=== PATIENT | female | born 1965 | race Caucasian/White ===

== ENCOUNTER 2019-11-25 12:47 | Inpatient (IN) | payer BC, OTHER ==
[~2019-11-25] VITALS: Ht 165.3 cm; Wt 133.5 kg
[~2019-11-25 12:47] MED LIST: CHOLESTEROL MED PO; DIAZIDE PO; HUMULIN SC; LEVOXYL PO; METF-380 PO
[2019-11-25] MEDS ORDERED: INSU100I29 SQ (13:10)
[2019-11-25] MEDS ORDERED: INSU100I14 SQ (13:10)
[2019-11-25] MEDS ORDERED: TRIA1CAP4 PO (13:10)
[2019-11-25] MEDS ORDERED: LEVO175T5 PO (13:10)
[2019-11-25] MEDS ORDERED: ROSU20TA32 PO (13:10)
[2019-11-25] MEDS ORDERED: NS IV 1000 ML 1,000 ML IV SCH ×2 (13:43)
--- NOTE | 2019-11-25 13:54 | ED Respiratory ---
General Chief Complaint: Respiratory Problems Stated Complaint: SOB Nursing Triage Note: Tested positive for covid 19 on 11/13. States symptoms at that time was a fever. Yesterday developed a cough and shortness of breath. O2 sats at home were mid 80's on room air. On arrival to ED was 80% on room air. 3L oxygen placed and sats returned to 91%. Temp was 104 two days ago, states it was 100 prior to arrival. Has been taking aleve, zyrtec, and tylenol for symptoms. Source: patient Exam Limitations: no limitations History of Present Illness Date Seen by Provider: Nov 25, 2019 Time Seen by Provider: 13:24 Initial Comments Patient presents ER by private conveyance with chief complaint of shortness of air starting today. She has some general malaise for the past 2 weeks and 10 days ago was diagnosed with COVID-19 outpatient. She follows with Neo Woodall at [facility]. She has not have a history of smoking, tobaccoism, COPD or asthma. She has no history of heart disease. She's not having any pain anywhere. She just has shortness of air today. Nursing staff that she was 80% oxygen sats on room air when she arrived and on 3 L per nasal cannula and they have kept her in the mid 90s. She's had some nausea off and on for the past 2 days but none presently. She's diabetic with A1c above 12. She says so far she's not had any problems with shortness of air cough only occasional fever and chills and malaise until today. Allergies and Home Medications Allergies Coded Allergies: No Known Drug Allergies (Unverified , 02/12/10) Home Medications Metformin Hcl 1,000 Mg Tablet, 1,000 MG PO BID, (Reported) [Cholesterol Med] , 1 TAB PO DAILY, (Reported) [Diazide] , 1 TAB PO DAILY, (Reported) [Humulin 80/20] , 21 UNITS SC BID, (Reported) [Levoxyl] , 1 TAB PO DAILY, (Reported) Patient Home Medication List Home Medication List Reviewed: Yes Review of Systems Review of Systems Constitutional: chills; No fever; malaise EENTM: No ear discharge, No ear pain Respiratory: No cough, No phlegm; short of breath; No wheezing Cardiovascular: No chest pain, No edema, No Hx of Intervention, No palpitations Gastrointestinal: No abdominal pain, No constipation, No diarrhea, No nausea Genitourinary: No discharge, No dysuria Musculoskeletal: No back pain, No joint pain All Other Systems Reviewed Negative Unless Noted: Yes Past Nqakcxk-Tkvquu-Acdsiw Hx Patient Social History Alcohol Use: Denies Use Recreational Drug Use: No Smoking Status: Never a Smoker 2nd Hand Smoke Exposure: No Recent Foreign Travel: No Contact w/Someone Who Travel: No Recent Infectious Disease Expo: Yes Recent Hopitalizations: No Seasonal Allergies Seasonal Allergies: No Past Medical History Surgeries: Yes Gallbladder, Hysterectomy Respiratory: No Cardiac: Yes High Cholesterol, Hypertension Neurological: No Genitourinary: No Gastrointestinal: No Musculoskeletal: No Endocrine: Yes Diabetes, Insulin dep, Hypothyroidsim HEENT: No Cancer: No Psychosocial: No Integumentary: No Blood Disorders: No Adverse Reaction/Blood Tranf: No Physical Exam Vital Signs - First Documented 11/25/19 13:10 Pulse 95 Resp 20 B/P (MAP) 119/103 (108) Pulse Ox 91 Capillary Refill : Less Than 3 Seconds Height: '" Weight: lbs. oz. kg; BMI Method: General Appearance: moderate distress, obese Eyes: Bilateral Eye Normal Inspection, Bilateral Eye PERRL, Bilateral Eye EOMI HEENT: PERRL/EOMI, normal ENT inspection, TMs normal, pharynx normal Neck: non-tender, full range of motion, supple, normal inspection Respiratory: lungs clear, normal breath sounds, no accessory muscle use, respiratory distress (oxygen saturation 93% on 3 L by nasal cannula) Cardiovascular: normal peripheral pulses, regular rate, rhythm Gastrointestinal: normal bowel sounds, non tender, soft Extremities: non-tender, normal inspection, no pedal edema Neurologic/Psychiatric: alert, normal mood/affect, oriented x 3 Skin: normal color, warm/dry Focused Exam Sepsis Stage: Severe Sepsis (creatinine elevated above 1.2, hypoxemia = evidence of end organ dysfunction.) Possible Source: Pulmonary Lactate Level 11/25/19 13:41: Lactic Acid Level 1.40 Time of Focused Exam: 14:50 Respiratory: Lungs Clear, Normal Breath Sounds, No Accessory Muscle Use, Respiratory Distress (mild to mod) Cardiovascular: Regular Rate, Rhythm, No Edema, Normal Peripheral Pulses Capillary Refill: NONE Peripheral Pulses: 2+ Radial Pulses (R), 2+ Radial Pulses (L) Skin: normal color, warm/dry Lactic Acid Level Laboratory Tests Test 11/25/19 13:41 Lactic Acid Level 1.40 MMOL/L (0.50-2.00) Within 3hrs of presentation: Admin fluids, Admin 30ml/kg IBW due to BMI>30 (193# AIBW), Admin ABX, Blood cultures prior to ABX's, Focus exam, Lactate level Progress/Results/Core Measures Suspected Sepsis Recent Fever Within 48 Hours: Yes Infection Criteria Present: Documented Infection New/Unexplained Altered Menta: No Sepsis Screen: Possible Sepsis Risk SIRS Temperature: Pulse: 95 Respiratory Rate: 20 Laboratory Tests 11/25/19 02:28: White Blood Count 6.2 Blood Pressure 119 /103 Mean: 108 11/25/19 13:41: Lactic Acid Level 1.40 Laboratory Tests 11/25/19 02:28: Creatinine 1.34H, Platelet Count 227, Total Bilirubin 0.5 Results/Orders Lab Results Laboratory Tests Test 11/25/19 02:28 11/25/19 13:26 11/25/19 13:41 Range/Units White Blood Count 6.2 4.3-11.0 10^3/uL Red Blood Count 4.31 L 4.35-5.85 10^6/uL Hemoglobin 13.2 11.5-16.0 G/DL Hematocrit 38 35-52 % Mean Corpuscular Volume 88 80-99 FL Mean Corpuscular Hemoglobin 31 25-34 PG Mean Corpuscular Hemoglobin Concent 35 32-36 G/DL Red Cell Distribution Width 11.8 10.0-14.5 % Platelet Count 227 130-400 10^3/uL Mean Platelet Volume 9.9 7.4-10.4 FL Neutrophils (%) (Auto) 74 42-75 % Lymphocytes (%) (Auto) 19 12-44 % Monocytes (%) (Auto) 7 0-12 % Eosinophils (%) (Auto) 0 0-10 % Basophils (%) (Auto) 0 0-10 % Neutrophils # (Auto) 4.6 1.8-7.8 X 10^3 Lymphocytes # (Auto) 1.2 1.0-4.0 X 10^3 Monocytes # (Auto) 0.4 0.0-1.0 X 10^3 Eosinophils # (Auto) 0.0 0.0-0.3 10^3/uL Basophils # (Auto) 0.0 0.0-0.1 10^3/uL Erythrocyte Sedimentation Rate 81 H 0-30 MM/HR Sodium Level 131 L 135-145 MMOL/L Potassium Level 4.3 3.6-5.0 MMOL/L Chloride Level 93 L 98-107 MMOL/L Carbon Dioxide Level 22 21-32 MMOL/L Anion Gap 16 H 5-14 MMOL/L Blood Urea Nitrogen 25 H 7-18 MG/DL Creatinine 1.34 H 0.60-1.30 MG/DL Estimat Glomerular Filtration Rate 41 BUN/Creatinine Ratio 19 Glucose Level 292 H 70-105 MG/DL Calcium Level 8.7 8.5-10.1 MG/DL Corrected Calcium 9.2 8.5-10.1 MG/DL Total Bilirubin 0.5 0.1-1.0 MG/DL Aspartate Amino Transf (AST/SGOT) 19 5-34 U/L Alanine Aminotransferase (ALT/SGPT) 16 0-55 U/L Alkaline Phosphatase 72 40-136 U/L Total Protein 7.4 6.4-8.2 GM/DL Albumin 3.4 3.2-4.5 GM/DL Blood Gas Puncture Site RIGHT RAD Blood Gas Patient Temperature 37.4 Arterial Blood pH 7.46 H 7.37-7.43 Arterial Blood Partial Pressure CO2 32 L 35-45 MMHG Arterial Blood Partial Pressure O2 65 L 79-93 MMHG Arterial Blood HCO3 23 23-27 MMOL/L Arterial Blood Total CO2 23.8 21.0-31.0 MMOL/L Arterial Blood Oxygen Saturation 94 94-100 % Arterial Blood Base Excess -0.4 -2.5-2.5 MMOL/L Riaz Test YES-POS Blood Gas Ventilator Setting NO Blood Gas Inspired Oxygen 3 L Lactic Acid Level 1.40 0.50-2.00 MMOL/L My Orders Orders - ANASTASIA RICHARDSON Cbc With Automated Diff (11/25/19 13:43) Comprehensive Metabolic Panel (11/25/19 13:43) Blood Culture (11/25/19 13:43) Sputum Culture (11/25/19 13:43) Protime With Inr (11/25/19 13:43) Partial Thromboplastin Time (11/25/19 13:43) Chest 1 View Ap/Pa Only (11/25/19 13:43) Ed Iv/Invasive Line Start (11/25/19 13:43) Ed Iv/Invasive Line Start (11/25/19 13:43) Vital Signs Adult Sepsis Patie Q15M (11/25/19 13:43) O2 (11/25/19 13:43) Remove Rings In Anticipation O (11/25/19 13:43) Lactic Acid Analyzer (11/25/19 13:43) Ns Iv 1000 Ml (Sodium Chloride 0.9%) (11/25/19 13:43) Ed Iv/Invasive Line Start (11/25/19 13:43) Ns Iv 1000 Ml (Sodium Chloride 0.9%) (11/25/19 13:43) Arterial Blood Gas (11/25/19 13:43) Fibrin Degradation Products (11/25/19 13:43) Procalcitonin (Pct) (11/25/19 13:43) Erythrocyte Sedimentation Rate (11/25/19 13:43) LDH (11/25/19 13:43) Crp Fs (11/25/19 02:28) Probnp Fs (11/25/19 14:22) Dexamethasone Injection (Decadron Inject (11/25/19 14:45) Vital Signs/I&O 11/25/19 13:10 Pulse 95 Resp 20 B/P (MAP) 119/103 (108) Pulse Ox 91 Capillary Refill : Less Than 3 Seconds Blood Pressure Mean: 108 Progress Note #1: Time: 13:52 Progress Note Well score 0.0 points; Low risk group: 1.3% chance of PE in an ED population. Perc 2 criteria; If any criteria are positive, the PERC rule cannot be used to rule out PE in this patient. Plan d-dimer. We'll hold off on using antibiotics until we see evidence of bacterial pneumonia. We'll get a LDH, CRP, pro calcitonin, ESR in addition to a septic workup. 2 L would be greater than 20 mL/kg based on an adjusted ideal body weight of 193 pounds. She has sepsis based on her heart rate in the 90s and tachypnea with evidence of end organ dysfunction with oxygen sats in the low 80s putting her a severe sepsis. Lactate and cultures ordered. Progress Note #2: Time: 14:23 Progress Note Response the chest x-ray reduce the fluid bolus by half to just 1 L normal saline. Decadron 6 mg IV. Diagnostic Imaging Diagonstic Imaging: Xray Plain Films/CT/US/NM/MRI: chest Comments NAME: SHAHANA SAMPSON [facility] REC#: [id number] PT STATUS: REG ER : 1965 PHYSICIAN: ANASTASIA RICHARDSON MD ADMIT DATE: 11/25/19/ER FS Draft Date of Exam:11/25/19 CHEST 1 VIEW AP/PA ONLY INDICATION: Dyspnea Portable upright view of the chest is obtained. There is no previous study for comparison. There is moderate mixed interstitial and alveolar densities throughout the lungs. This I most pronounced in the perihilar region. No definite pneumothorax identified. Heart size appears to be within normal limits. There is no evidence of significant pleural fluid. IMPRESSION: Bilateral predominantly perihilar densities may represent pulmonary edema or pneumonitis. Clinical correlation is recommended. Dictated on workstation # [id number] Dict: 11/25/19 1400 Trans: 11/25/19 1402 [facility] MD [facility] [id number] Interpreted by: GABE DIAZ MD Electronically signed by: Reviewed: Reviewed by Me Departure Communication (Admissions) Time/Spoke to Admitting Phy: 14:30 Discussed the case with Dr. Christie and he agrees to accept the patient the floor. He feels she is out of the window for Remdesivir however he would recommend Decadron 6 mg daily. Impression Primary Impression: COVID-19 Additional Impressions: Pneumonia, viral Severe sepsis Acute respiratory failure with hypoxia Disposition: ADMITTED INPATIENT Condition: Stable Admissions Decision to Admit Reason: Admit from ER (General) Decision to Admit/Date: Nov 25, 2019 Time/Decision to Admit Time: 13:50 Departure-Patient Inst. Referrals: [facility] (PCP) Primary Care Physician NEO WOODALL APRN (Family) Primary Care Physician ANASTASIA RICHARDSON Nov 25, 2019 13:53
[2019-11-25 14:01] LABS: ABG PCO2 32 MMHG (35-45); ABG PH 7.46 (7.37-7.43); ABG PO2 65 MMHG (79-93); ABG TCO2 23.8 MMOL/L (21.0-31.0); ALLENS TEST YES-POS; INSPIRED O2 3 L; PATIENT TEMP 37.4; VENTILATOR NO
[2019-11-25 14:02] LABS: ABG BASE EXCESS -0.4 MMOL/L (-2.5-2.5); ABG OXYGEN SATURATION 94 % (94-100)
--- NOTE | 2019-11-25 14:03 | Diagnostic Imaging Report ---
INDICATION: Dyspnea Portable upright view of the chest is obtained. There is no previous study for comparison. There is moderate mixed interstitial and alveolar densities throughout the lungs. This I most pronounced in the perihilar region. No definite pneumothorax identified. Heart size appears to be within normal limits. There is no evidence of significant pleural fluid. IMPRESSION: Bilateral predominantly perihilar densities may represent pulmonary edema or pneumonitis. Clinical correlation is recommended. Dictated by: Dictated on workstation # [id number]
[2019-11-25 14:08] LABS: BASOPHILS % (AUTO) 0 % (0-10); EOSINOPHILS % (AUTO) 0 % (0-10); HEMATOCRIT 38 % (35-52); HEMOGLOBIN 13.2 G/DL (11.5-16.0); LYMPHOCYTES % (AUTO) 19 % (12-44); MEAN CORPUSCULAR HEMOGLOBIN 31 PG (25-34); MEAN CORPUSCULAR HGB CONC 35 G/DL (32-36); MEAN CORPUSCULAR VOLUME 88 FL (80-99); MEAN PLATELET VOLUME 9.9 FL (7.4-10.4); MONOCYTES % (AUTO) 7 % (0-12); PLATELET COUNT 227 10^3/uL (130-400); RED CELL DISTRIBUTION WIDTH 11.8 % (10.0-14.5); WHITE BLOOD COUNT 6.2 10^3/uL (4.3-11.0)
[2019-11-25 14:09] LABS: LYMPHOCYTES # (AUTO) 1.2 X 10^3 (1.0-4.0); MONOCYTES # (AUTO) 0.4 X 10^3 (0.0-1.0); NEUTROPHILS # (AUTO) 4.6 X 10^3 (1.8-7.8); NEUTROPHILS % (AUTO) 74 % (42-75)
--- OUTSIDE RECORDS SUMMARY | 2019-11-25 14:27 | XMS REPORT | Continuity of Care Document ---
Author Organization Unknown Address Unknown Phone Unavailable Allergies There is no data. Medications There is no data. Problems There is no data. Procedures There is no data. Results Test Result Range CMP - 12/17/18 19:00 GLUCOSE 129 mg/dL 65-99 UREA NITROGEN (BUN) 19 mg/dL 7-25 CREATININE 0.83 mg/dL 0.50-1.05 eGFR NON-AFR. TOGOLESE 81 mL/min/1.73m2 > OR = 60 eGFR 93 mL/min/1.73m2 > OR = 60 BUN/CREATININE RATIO NOT APPLICABLE (calc) 6-22 SODIUM 139 mmol/L 135-146 POTASSIUM 3.8 mmol/L 3.5-5.3 CHLORIDE 105 mmol/L 98-110 CARBON DIOXIDE 26 mmol/L 20-32 CALCIUM 9.4 mg/dL 8.6-10.4 PROTEIN, TOTAL 7.0 g/dL 6.1-8.1 ALBUMIN 4.1 g/dL 3.6-5.1 GLOBULIN 2.9 g/dL (calc) 1.9-3.7 ALBUMIN/GLOBULIN RATIO 1.4 (calc) 1.0-2. 5 BILIRUBIN, TOTAL 0.7 mg/dL 0.2-1.2 ALKALINE PHOSPHATASE 56 U/L 33-130 AST 16 U/L 10-35 ALT 24 U/L 6-29 CBC - 12/17/18 19:00 WHITE BLOOD CELL COUNT 6.7 Thousand/uL 3 .8-10.8 RED BLOOD CELL COUNT 4.48 Million/uL 3.8 0-5.10 HEMOGLOBIN 13.6 g/dL 11.7-15.5 HEMATOCRIT 40.3 % 35.0-45.0 MCV 90.0 fL 80.0-100.0 MCH 30.4 pg 27.0-33.0 MCHC 33.7 g/dL 32.0-36.0 RDW 12.7 % 11.0-15.0 PLATELET COUNT 273 Thousand/uL 140-400 MPV 10.0 fL 7.5-12.5 ABSOLUTE NEUTROPHILS 3672 cells/uL 1500- 7800 ABSOLUTE LYMPHOCYTES 2245 cells/uL 850-3 900 ABSOLUTE MONOCYTES 556 cells/uL 200-950 ABSOLUTE EOSINOPHILS 181 cells/uL 15-500 ABSOLUTE BASOPHILS 47 cells/uL 0-200 NEUTROPHILS 54.8 % NRG LYMPHOCYTES 33.5 % NRG MONOCYTES 8.3 % NRG EOSINOPHILS 2.7 % NRG BASOPHILS 0.7 % NRG A1C - 12/18/18 10:39 HEMOGLOBIN A1c 13.1 % of total Hgb <5.7 CBC w/MANUAL DIFF - 02/27/19 10:11 WHITE BLOOD CELL COUNT 8.4 Thousand/uL 3 .8-10.8 RED BLOOD CELL COUNT 4.78 Million/uL 3.8 0-5.10 HEMOGLOBIN 14.7 g/dL 11.7-15.5 HEMATOCRIT 44.4 % 35.0-45.0 MCV 92.9 fL 80.0-100.0 MCH 30.8 pg 27.0-33.0 MCHC 33.1 g/dL 32.0-36.0 RDW 12.8 % 11.0-15.0 PLATELET COUNT 253 Thousand/uL 140-400 MPV 10.3 fL 7.5-12.5 ABSOLUTE NEUTROPHILS 5292 cells/uL 1500- 7800 ABSOLUTE MONOCYTES 588 cells/uL 200-950 ABSOLUTE EOSINOPHILS 84 cells/uL 15-500 ABSOLUTE BASOPHILS 84 cells/uL 0-200 NEUTROPHILS 63.0 % NRG LYMPHOCYTES 28.0 % NRG MONOCYTES 7.0 % NRG EOSINOPHILS 1.0 % NRG BASOPHILS 1.0 % NRG ABSOLUTE LYMPHOCYTES 2352 cells/uL 850-3 900 PLATELET ESTIMATION ADEQUATE ADEQUATE COMMENT(S) NRG TSH - 10/24/19 12:42 TSH 3.20 mIU/L NRG A1C - 10/24/19 12:42 HEMOGLOBIN A1c >14.0 % of total Hgb <5.7 COVID-19 ([facility]) - 11/18/19 15:52 Encounters ACCT No. Visit Date/Time Discharge Status Pt. Type Provider Facility Loc./Unit Complaint [id number] 10/25/2019 11:00:00 10/25/2019 23:59: 59 [facility] Outpatient NEO WOODALL [facility] [id number] 11/18/2019 15:00:00 Document Registration [id number] 10/24/2019 11:20:00 Document Registration [id number] 02/27/2019 09:40:00 Document Registration [id number] 12/18/2018 08:00:00 Document Registration [id number] 12/17/2018 12:30:00 Document Registration [id number] 11/25/2019 12:50:[address] Emergency DYLAN MORGAN, ANASTASIA Baez [facility] ER FS SOB
[2019-11-25 14:31] LABS: ERYTHROCYTE SEDIMENTATION RATE 81 MM/HR (0-30)
[2019-11-25 14:32] LABS: POTASSIUM 4.3 MMOL/L (3.6-5.0)
[2019-11-25 14:33] LABS: ALBUMIN 3.4 GM/DL (3.2-4.5); BILIRUBIN,TOTAL 0.5 MG/DL (0.1-1.0); CALCIUM 8.7 MG/DL (8.5-10.1); CREATININE SERUM 1.34 MG/DL (0.60-1.30); TOTAL PROTEIN 7.4 GM/DL (6.4-8.2)
[2019-11-25] MEDS ORDERED: DEXAMETHASONE 4 MG/ML SDV (DECADRON) IV ONE (14:45)
[2019-11-25 14:54] LABS: FIBRIN DEGRADATION PRODUCTS 2.53 UG/ML (0.00-0.49); PROTHROMBIN TIME PATIENT 13.3 SEC (12.2-14.7)
[2019-11-25 16:00] VITALS: BP 147/81
[2019-11-25 16:09] VITALS: BP 134/77
--- NOTE | 2019-11-25 16:30 | NUR ---
SHAHANA SAMPSON admitted to room 432-1, with an admitting diagnosis of ACUTE RESP FAILURE WITH HYPOXIA, COVID19 POSTIVE, on 11/25/19 from ED via AMBULANCE, accompanied by STAFF. SHAHANA SAMPSON introduced to surroundings, call light, bed controls, phone, TV, temperature control, lights, meal times, smoking policy, visitor policy, side rail policy, bathrooms and showers. Patient Rights given to patient in the handbook. SHAHANA SAMPSON verbalizes understanding that [facility] is not responsible for the loss or damage to any personal effects or valuables that are kept in the patients posession during their hospitalization. PATIENT EDUCATED ON ISOLATION.
[2019-11-25] MEDS ORDERED: ACETAMINOPHEN 500 MG TAB (TYLENOL) PO PRN (16:45)
[2019-11-25] MEDS ORDERED: CATHETER FLUSH 10 ML SYR IV PRN (17:00)
[2019-11-25] MEDS ORDERED: ONDANSETRON 4 MG/2 ML (SDV) Z0FRAN IV PRN (17:00)
[2019-11-25] MEDS ORDERED: IBUPROFEN 800 MG (MOTRIN) TAB PO PRN (17:00)
[2019-11-25] MEDS: LACTATED RINGERS 1,000 ML IV SCH (17:35)
[2019-11-25] MEDS: inSUlin ASPART (NovoLOG) 1 UNIT/0.01 ML (CHARGE PER UNIT) SC SCH ×3 (17:43→21:33)
[2019-11-25] MEDS ORDERED: ENOXAPARIN 100 MG/1 ML (LOVENOX) SYR SC SCH (17:45)
--- OUTSIDE RECORDS SUMMARY | 2019-11-25 17:52 | XMS REPORT | Continuity of Care Document ---
Author Organization Unknown Address Unknown Phone Unavailable Allergies There is no data. Medications There is no data. Problems There is no data. Procedures There is no data. Results Test Result Range CMP - 12/17/18 19:00 GLUCOSE 129 mg/dL 65-99 UREA NITROGEN (BUN) 19 mg/dL 7-25 CREATININE 0.83 mg/dL 0.50-1.05 eGFR NON-AFR. BURKINAN 81 mL/min/1.73m2 > OR = 60 eGFR [...] Status Pt. Type Provider Facility Loc./Unit Complaint [id number] 10/25/2019 11:00:00 10/25/2019 23:59: 59 [facility] Outpatient NEO WOODALL [facility] [id number] 11/18/2019 15:00:00 Document Registration [id number] 10/24/2019 11:20:00 Document Registration [id number] 02/27/2019 09:40:00 Document Registration [id number] 12/18/2018 08:00:00 Document Registration [id number] 12/17/2018 12:30:00 Document Registration [id number] 11/25/2019 14:57:[address] Inpatient OLU MORGAN, BEKA Sharif [facility] 4TH COVID19, SEVERE SEPSIS, ACUT E RESP FAIL W/ HYPOXIA
[2019-11-25] MEDS ORDERED: AZITHROMYCIN INJECTION 500 MG in NS (IVPB) 250 ML IV NR (18:00)
[2019-11-25] MEDS ORDERED: ZINC SULFATE 220 MG CAPSULE PO SCH (18:00)
[2019-11-25] MEDS ORDERED: cefTRIAXone FOR IV USE 2,000 MG in WATER (STERILE) FOR INJECTION 20 ML IV ONE (18:00)
[2019-11-25] MEDS: ENOXAPARIN 300 MG/3 ML (LOVENOX) MULTI-DOSE VIAL SQ SCH (19:15)
[2019-11-25] MEDS: cefTRIAXone FOR IV USE 2,000 MG in WATER (STERILE) FOR INJECTION 20 ML IV SCH (19:15)
[2019-11-25 20:35] VITALS: BP 119/103
[2019-11-25 20:55] VITALS: BP 148/76
[2019-11-25] MEDS ORDERED: ASCORBIC ACID (VIT C) 500 MG TABLET PO SCH (21:00)
[2019-11-25 23:32] VITALS: BP 156/82
[2019-11-26] MEDS ORDERED: RT-ALBUTEROL INHALER HFA (VENTOLIN HFA) 8 GM IH PRN
[2019-11-26 04:15] VITALS: BP 150/78
--- NOTE | 2019-11-26 05:23 | Diagnostic Imaging Report ---
Indication: Lower respiratory infection Portable chest 3:55 AM There are multifocal alveolar consolidations in both lungs. There are no effusions or pneumothoraces. Heart size normal. IMPRESSION: Multifocal pneumonia. There appears be slight improved aeration of the lung bases compared to the previous day. Dictated by: Dictated on workstation # [id number]
[2019-11-26 05:54] LABS: BASOPHILS % (AUTO) 0 % (0-10); EOSINOPHILS % (AUTO) 0 % (0-10); HEMATOCRIT 35 % (35-52); LYMPHOCYTES # (AUTO) 1.3 X 10^3 (1.0-4.0); LYMPHOCYTES % (AUTO) 27 % (12-44); MEAN CORPUSCULAR HEMOGLOBIN 31 PG (25-34); MEAN CORPUSCULAR HGB CONC 35 G/DL (32-36); MEAN CORPUSCULAR VOLUME 89 FL (80-99); MEAN PLATELET VOLUME 9.4 FL (7.4-10.4); MONOCYTES # (AUTO) 0.4 X 10^3 (0.0-1.0); MONOCYTES % (AUTO) 7 % (0-12); NEUTROPHILS # (AUTO) 3.2 X 10^3 (1.8-7.8); NEUTROPHILS % (AUTO) 65 % (42-75); PLATELET COUNT 223 10^3/uL (130-400); RED CELL DISTRIBUTION WIDTH 11.8 % (10.0-14.5); WHITE BLOOD COUNT 4.9 10^3/uL (4.3-11.0)
[2019-11-26 05:57] LABS: ALBUMIN 3.2 GM/DL (3.2-4.5)
[2019-11-26 05:59] LABS: CALCIUM 8.6 MG/DL (8.5-10.1)
[2019-11-26 06:00] LABS: TOTAL PROTEIN 6.7 GM/DL (6.4-8.2)
[2019-11-26 06:02] LABS: BILIRUBIN,TOTAL 0.2 MG/DL (0.1-1.0)
[2019-11-26 06:04] LABS: CREATININE SERUM 1.68 MG/DL (0.60-1.30)
[2019-11-26] MEDS: LACTATED RINGERS 1,000 ML IV SCH ×2 (06:07→09:09)
[2019-11-26] MEDS: inSUlin ASPART (NovoLOG) 1 UNIT/0.01 ML (CHARGE PER UNIT) SC SCH ×7 (06:21→21:11)
[2019-11-26] MEDS: ENOXAPARIN 300 MG/3 ML (LOVENOX) MULTI-DOSE VIAL SQ SCH ×2 (06:22→17:42)
[2019-11-26] MEDS ORDERED: LEVOTHYROXINE 100 MCG (LEVOTHROID) TAB PO SCH (06:30)
--- NOTE | 2019-11-26 07:08 | NUR ---
PT DOES NOT NEED BREATHING TX AT THIS TIME. PT IS IN NO RESPIRATORY DISTRESS AT THIS TIME. RN IS TO GIVE CALL TO RT IF PT DOES NEED BREATHING TX. Addendum: 11/26/19 at 0709 by PETE CROCKETT RT Amended: Links added.
[2019-11-26] MEDS: DEXAMETHASONE 10 MG/ML (DECADRON) 1 ML VIAL IV SCH (07:56)
[2019-11-26 09:05] VITALS: BP 134/76
[2019-11-26 10:02] VITALS: BP 134/76
--- NOTE | 2019-11-26 10:45 | History & Physical-Hospitalist ---
History of Present Illness HPI/Chief Complaint Pt is a 54yoCF with a PMH of IDDMII, HTN who presented to the ER due to SOB. She has been sick since 11/13 and was tested on 11/18 for COVID and was found to be positive. She states she did well besides fevers, myalgias, and malaise until yesterday when she developed shortness of breath. She took a shower and had to sit and take a break to catch her breath. This prompted her to seek evaluation in the ER. She was found to be hypoxic on room air at 80% in the ER and placed on oxygen. She does not wear oxygen at baseline. This morning she states she is feeling the best she has in two weeks. Source: patient Date Seen 11/26/19 Time Seen by a Provider: 10:28 Attending Physician Ashley Christie MD [place] [place] Referring Physician Date of Admission Nov 25, 2019 at 14:57 Home Medications & Allergies Home Medications Reviewed patient Home Medication Reconciliation performed by pharmacy medication reconciliations dialysis chief equipment technician and/or nursing. Patients Allergies have been reviewed. Allergies Allergies Coded Allergies No Known Drug Allergies (Unverified02/12/10) Past Bqlkdol-Hcniar-Effbzd Hx Past Med/Social Hx: Reviewed Nursing Past Med/Soc Hx Patient Social History Alcohol Use: Denies Use Recreational Drug Use: No Smoking Status: Never a Smoker 2nd Hand Smoke Exposure: No Recent Foreign Travel: No Contact w/other who traveled: No Recent Hopitalizations: No Recent Infectious Disease Expo: Yes Immunizations Up To Date Date of Pneumonia Vaccine: September 27, 2019 Seasonal Allergies Seasonal Allergies: No Past Medical History Surgeries: Gallbladder, Hysterectomy Cardiac: High Cholesterol, Hypertension : No Endocrine: Diabetes, Insulin dep, Hypothyroidsim History of Blood Disorders: No Adverse Reaction to Blood [place]: No Family History Reviewed Nursing Family Hx Cardiovascular disease 19 FATHER 19 MOTHER G8 BROTHER Diabetes mellitus 19 FATHER 19 MOTHER G8 BROTHER Hypertension 19 MOTHER G8 BROTHER Respiratory disorder 19 FATHER Thyroid disease 19 MOTHER Review of Systems Constitutional: chills, fever, malaise EENTM: no symptoms reported Respiratory: dyspnea on exertion; No hemoptysis; short of breath Cardiovascular: No chest pain, No edema, No Hx of Intervention Gastrointestinal: No abdominal pain; diarrhea; No nausea, No vomiting Genitourinary: no symptoms reported Musculoskeletal: no symptoms reported Skin: no symptoms reported Psychiatric/Neurological: No Symptoms Reported Physical Exam Physical Exam Vital Signs Vital Signs - First Documented 11/25/19 11/25/19 11/25/19 13:10 15:09 16:00 Temp 37.4 Pulse 95 Resp 20 B/P (MAP) 119/103 (108) Pulse Ox 91 O2 Delivery Nasal Cannula O2 Flow Rate 3.00 FiO2 80 Capillary Refill : Less Than 3 Seconds Height, Weight, BMI Height: '" Weight: lbs. oz. kg; 48.85 BMI Method: General Appearance: No Apparent Distress, WD/WN, Obese Neck: Normal Inspection, Supple Respiratory: Lungs Clear, No Accessory Muscle Use, No Respiratory Distress Cardiovascular: Regular Rate, Rhythm, No JVD, No Murmur Gastrointestinal: Normal Bowel Sounds, Non Tender, Soft Extremity: No Calf Tenderness, No Pedal Edema Neurologic/Psychiatric: Alert, Oriented x3, Normal Mood/Affect Results Results/Procedures Labs Laboratory Tests 11/25/19 02:28 11/26/19 05:40 Patient resulted labs reviewed. Imaging: Reviewed Imaging Report Imaging [facility] [place] NAME: SHAHANA SAMPSON [facility] REC#: [id number] PT STATUS: ADM IN : 1965 PHYSICIAN: ANASTASIA RICHARDSON MD ADMIT DATE: 11/25/19 Signed Date of Exam:11/25/19 CHEST 1 VIEW AP/PA ONLY INDICATION: Dyspnea Portable upright view of the chest is obtained. There is no previous study for comparison. There is moderate mixed interstitial and alveolar densities throughout the lungs. This I most pronounced in the perihilar region. No definite pneumothorax identified. Heart size appears to be within normal limits. There is no evidence of significant pleural fluid. IMPRESSION: Bilateral predominantly perihilar densities may represent pulmonary edema or pneumonitis. Clinical correlation is recommended. Dictated by: Dictated on workstation # [id number] Dict: 11/25/19 1400 Trans: 11/25/19 1657 [facility]NER [phone] Interpreted by: GABE DIAZ MD Electronically signed by: GABE DIAZ MD 11/25/19 1657 Assessment/Plan Admission Diagnosis Hypoxia from COVID19 Admission Status: Inpatient Order (span 2 midnights) Reason for Inpatient Admission: hypoxia, will require more than two midnight to stabilize for DC Assessment and Plan Hypoxia from COVID19 Pneumonia Doing better today afebrile Continue IV abx for pna Continue decadron Titrate oxygen as able HTN BP midly elevated overnight, resume home meds IDDMII A1c >12 per ER note Continue home insulin SSI hypothyroidism Continue home supplement HLD Continue home rosuvastatin DVT PPX: Lovenox Diagnosis/Problems Diagnosis/Problems (1) Acute respiratory failure with hypoxia Status: Acute (2) Insulin dependent diabetes mellitus Status: Chronic (3) Hypothyroidism Status: Chronic Qualifiers: Hypothyroidism type: unspecified Qualified Codes: E03.9 - Hypothyroidism, unspecified (4) Hypertension Status: Chronic Qualifiers: Hypertension type: essential hypertension Qualified Codes: I10 - Essential (primary) hypertension (5) Hyperlipidemia Qualifiers: Hyperlipidemia type: other hyperlipidemia Qualified Codes: E78.49 - Other hyperlipidemia (6) Prophylactic measure Status: Acute (7) SARS-associated coronavirus infection Status: Acute (8) Pneumonia due to SARS-associated coronavirus Status: Acute Clinical Quality Measures DVT/VTE Risk/Contraindication: Risk Factor Score Per Nursin RFS Level Per Nursing on Admit: 3=High SUPA AYALA MD Nov 26, 2019 10:45
[2019-11-26 12:58] VITALS: BP 146/91
--- NOTE | 2019-11-26 13:14 | NUR ---
Received dietary consult for MST Score. Note pt is COVID-positive at this time. Attempted to complete nutrition assessment over the phone, but pt did not answer during 2 attempts. Will monitor intake and attempt to complete nutrition assessment at later date. Karina Hopkins, MS, RD, LD
[2019-11-26] MEDS: cefTRIAXone FOR IV USE 2,000 MG in WATER (STERILE) FOR INJECTION 20 ML IV SCH (17:36)
[2019-11-26] MEDS: AZITHROMYCIN INJECTION 500 MG in NS (IVPB) 250 ML IV SCH (17:43)
[2019-11-26 17:59] VITALS: BP 164/86
[2019-11-26] MEDS: ROSUVASTATIN 20 MG (CRESTOR) TABLET PO SCH (21:11)
[2019-11-26 21:16] VITALS: BP 157/93
[2019-11-26] MEDS: RT-ALBUTEROL INHALER HFA (VENTOLIN HFA) 8 GM IH SCH (21:42)
[2019-11-27] VITALS (7 sets, daily range): BP systolic 148–180; BP diastolic 85–108
[2019-11-27] MEDS: RT-ALBUTEROL INHALER HFA (VENTOLIN HFA) 8 GM IH SCH ×4 (03:28→20:54)
[2019-11-27] MEDS: LEVOTHYROXINE 100 MCG (LEVOTHROID) TAB PO SCH (05:27)
[2019-11-27] MEDS: LEVOTHYROXINE 75 MCG (LEVOTHROID) TABLET PO SCH (05:27)
[2019-11-27] MEDS: ENOXAPARIN 300 MG/3 ML (LOVENOX) MULTI-DOSE VIAL SQ SCH ×2 (05:29→17:37)
[2019-11-27 06:29] LABS: HEMOGLOBIN 12.1 G/DL (11.5-16.0); MEAN PLATELET VOLUME 9.3 FL (7.4-10.4); RED CELL DISTRIBUTION WIDTH 12.2 % (10.0-14.5); WHITE BLOOD COUNT 5.3 10^3/uL (4.3-11.0)
[2019-11-27 06:32] LABS: POTASSIUM 4.1 MMOL/L (3.6-5.0)
[2019-11-27 06:38] LABS: CREATININE SERUM 1.36 MG/DL (0.60-1.30)
[2019-11-27] MEDS: inSUlin ASPART (NovoLOG) 1 UNIT/0.01 ML (CHARGE PER UNIT) SC SCH ×7 (06:41→20:14)
[2019-11-27] MEDS: TRIAMTERENE/HCTZ 75-50 (MAXZIDE,DYAZIDE) TABLET PO SCH (09:37)
[2019-11-27] MEDS: DEXAMETHASONE 10 MG/ML (DECADRON) 1 ML VIAL IV SCH (09:38)
--- NOTE | 2019-11-27 11:55 | Progress Note - Hospitalist ---
Subjective HPI/CC On Admission Date Seen by Provider: Nov 27, 2019 Time Seen by Provider: 11:52 Pt is a 54yoCF with a PMH of IDDMII, HTN who presented to the ER due to SOB. She has been sick since 11/13 and was tested on 11/18 for COVID and was found to be positive. She states she did well besides fevers, myalgias, and malaise until y esterday when she developed shortness of breath. She took a shower and had to sit and take a break to catch her breath. This prompted her to seek evaluation in the ER. She was found to be hypoxic on room air at 80% in the ER and placed on oxygen. She does not wear oxygen at baseline. This morning she states she is feeling the best she has in two weeks. Subjective/Events-last exam Pt reports feeling well today. No complaints. Oxygen level steady. Discussed proning and patient will try. Focused Exam Lactate Level 11/25/19 13:41: Lactic Acid Level 1.40 Time of Focused Exam: 14:50 Objective Exam Vital Signs Vital Signs Date Time Temp Pulse Resp B/P (MAP) Pulse Ox O2 Delivery O2 Flow Rate FiO2 11/27/19 09:37 92 Nasal Cannula 5.00 11/27/19 09:34 36.3 70 20 163/94 (117) 11/26/19 10:02 40 Capillary Refill : Less Than 3 Seconds General Appearance: No Apparent Distress, WD/WN, Obese Respiratory: Lungs Clear, No Respiratory Distress Cardiovascular: Regular Rate, Rhythm, No Murmur Neurologic/Psychiatric: Alert, Oriented x3 Results/Procedures Lab Laboratory Tests 11/27/19 06:08 Patient resulted labs reviewed. Imaging: Reviewed Imaging Report Assessment/Plan Assessment and Plan Assess & Plan/Chief Complaint Hypoxia from COVID19 Pneumonia Doing well, oxygen level stable afebrile Continue IV abx for pna Continue decadron Outside of window for remdesivir Titrate oxygen as able HTN Resume home meds IDDMII A1c >12 per ER note Continue home insulin SSI hypothyroidism Continue home supplement HLD Continue home rosuvastatin DVT PPX: Lovenox Diagnosis/Problems Diagnosis/Problems (1) Acute respiratory failure with hypoxia Status: Acute (2) Insulin dependent diabetes mellitus Status: Chronic (3) Hypothyroidism Status: Chronic Qualifiers: Hypothyroidism type: unspecified Qualified Codes: E03.9 - Hypothyroidism, unspecified (4) Hypertension Status: Chronic Qualifiers: Hypertension type: essential hypertension Qualified Codes: I10 - Essential (primary) hypertension (5) Hyperlipidemia Qualifiers: Hyperlipidemia type: other hyperlipidemia Qualified Codes: E78.49 - Other hyperlipidemia (6) Prophylactic measure Status: Acute (7) SARS-associated coronavirus infection Status: Acute (8) Pneumonia due to SARS-associated coronavirus Status: Acute Clinical Quality Measures DVT/VTE Risk/Contraindication: Risk Factor Score Per Nursin RFS Level Per Nursing on Admit: 3=High SUPA AYALA MD Nov 27, 2019 11:55
--- NOTE | 2019-11-27 13:11 | NUR ---
BP 180/103 DR AYALA NOTIFIED.
[2019-11-27] MEDS ORDERED: ONDA4TAB11 PO (13:38)
[2019-11-27] MEDS ORDERED: METF-397 PO (13:38)
[2019-11-27] MEDS ORDERED: NAPR220C11 PO (13:38)
[2019-11-27] MEDS ORDERED: PEG15DRO9 OU (13:38)
[2019-11-27] MEDS ORDERED: CETI10TA21 PO (13:38)
[2019-11-27] MEDS ORDERED: ACET325T38 PO (13:38)
[2019-11-27] MEDS ORDERED: hydrALAZINE (APESOLINE) 20 MG/ML VIAL IV PRN (14:45)
--- NOTE | 2019-11-27 16:05 | NUR ---
PT REPORTING HAVING PRESSURE IN HER HEAD WITH A HEADACHE, ALSO STATED TO HAVE SOME CHEST PRESSURE WITH IT THAT LASTED FOR A FEW MINUTES. DENIES ANY NAUSEA/DIAPHORESIS/RADIATING PAIN. DR AYALA NOTIFIED. HYDRALAZINE GIVEN FOR ELEVATED BP, WILL MONITOR PT
[2019-11-27] MEDS: AZITHROMYCIN INJECTION 500 MG in NS (IVPB) 250 ML IV SCH (17:23)
[2019-11-27] MEDS: cefTRIAXone FOR IV USE 2,000 MG in WATER (STERILE) FOR INJECTION 20 ML IV SCH (17:24)
[2019-11-27] MEDS: ROSUVASTATIN 20 MG (CRESTOR) TABLET PO SCH (20:13)
[2019-11-28] MEDS: RT-ALBUTEROL INHALER HFA (VENTOLIN HFA) 8 GM IH SCH ×4 (02:20→19:23)
[2019-11-28 06:05] VITALS: BP 164/90
[2019-11-28] MEDS: inSUlin ASPART (NovoLOG) 1 UNIT/0.01 ML (CHARGE PER UNIT) SC SCH ×7 (06:21→20:22)
[2019-11-28] MEDS: LEVOTHYROXINE 75 MCG (LEVOTHROID) TABLET PO SCH (06:24)
[2019-11-28] MEDS: LEVOTHYROXINE 100 MCG (LEVOTHROID) TAB PO SCH (06:24)
[2019-11-28] MEDS: ENOXAPARIN 300 MG/3 ML (LOVENOX) MULTI-DOSE VIAL SQ SCH (06:24)
[2019-11-28 08:04] VITALS: BP 145/71
[2019-11-28] MEDS: DEXAMETHASONE 10 MG/ML (DECADRON) 1 ML VIAL IV SCH (08:12)
[2019-11-28] MEDS: TRIAMTERENE/HCTZ 75-50 (MAXZIDE,DYAZIDE) TABLET PO SCH (08:13)
[2019-11-28 11:04] VITALS: BP 145/71
[2019-11-28 12:15] VITALS: BP 147/77
--- NOTE | 2019-11-28 12:39 | Progress Note - Hospitalist ---
Subjective HPI/CC On Admission Date Seen by Provider: Nov 28, 2019 Time Seen by Provider: 11:49 Pt is a 54yoCF with a PMH of IDDMII, HTN who presented to the ER due to SOB. She has been sick since 11/13 and was tested on 11/18 for COVID and was found to be positive. She states she did well besides fevers, myalgias, and malaise until yesterday when she developed shortness of breath. She took a shower and had to sit and take a break to catch her breath. This prompted her to seek evaluation in the ER. She was found to be hypoxic on room air at 80% in the ER and placed on oxygen. She does not wear oxygen at baseline. This morning she states she is feeling the best she has in two weeks. Subjective/Events-last exam Pt reports doing well today. No complaints. Decreasing oxygen requirement. Focused Exam Lactate Level 11/25/19 13:41: Lactic Acid Level 1.40 Time of Focused Exam: 14:50 Objective Exam Vital Signs Vital Signs Date Time Temp Pulse Resp B/P (MAP) Pulse Ox O2 Delivery O2 Flow Rate FiO2 11/28/19 11:04 36.2 80 91 36 11/28/19 08:04 20 145/71 (95) Nasal Cannula 4.00 Capillary Refill : Less Than 3 Seconds General Appearance: No Apparent Distress, WD/WN, Obese Respiratory: Lungs Clear, No Respiratory Distress Cardiovascular: Regular Rate, Rhythm, No Murmur Neurologic/Psychiatric: Alert, Oriented x3 Results/Procedures Lab Patient resulted labs reviewed. Imaging: Reviewed Imaging Report Assessment/Plan Assessment and Plan Assess & Plan/Chief Complaint Hypoxia from COVID19 Pneumonia Doing well, oxygen need decreasing, continue to titrate as able afebrile Continue IV abx for pna Continue decadron Outside of window for remdesivir Titrate oxygen as able HTN BP elevated yesterday but improving today Continue home meds IDDMII A1c >12 per ER note Continue home insulin SSI hypothyroidism Continue home supplement HLD Continue home rosuvastatin DVT PPX: Lovenox Diagnosis/Problems Diagnosis/Problems (1) Acute respiratory failure with hypoxia Status: Acute (2) Insulin dependent diabetes mellitus Status: Chronic (3) Hypothyroidism Status: Chronic Qualifiers: Hypothyroidism type: unspecified Qualified Codes: E03.9 - Hypothyroidism, unspecified (4) Hypertension Status: Chronic Qualifiers: Hypertension type: essential hypertension Qualified Codes: I10 - Essential (primary) hypertension (5) Hyperlipidemia Qualifiers: Hyperlipidemia type: other hyperlipidemia Qualified Codes: E78.49 - Other hyperlipidemia (6) Prophylactic measure Status: Acute (7) SARS-associated coronavirus infection Status: Acute (8) Pneumonia due to SARS-associated coronavirus Status: Acute Clinical Quality Measures DVT/VTE Risk/Contraindication: Risk Factor Score Per Nursin RFS Level Per Nursing on Admit: 3=High SUPA AYALA MD Nov 28, 2019 12:39
[2019-11-28 16:45] VITALS: BP 170/80
[2019-11-28] MEDS: AZITHROMYCIN INJECTION 500 MG in NS (IVPB) 250 ML IV SCH (17:57)
[2019-11-28] MEDS: ENOXAPARIN 40 MG/0.4 ML (LOVENOX) SYR SC SCH (17:57)
[2019-11-28] MEDS: cefTRIAXone FOR IV USE 2,000 MG in WATER (STERILE) FOR INJECTION 20 ML IV SCH (17:57)
[2019-11-28 20:15] VITALS: BP 160/87
[2019-11-28] MEDS: ROSUVASTATIN 20 MG (CRESTOR) TABLET PO SCH (20:21)
[2019-11-29] VITALS (7 sets, daily range): BP systolic 132–178; BP diastolic 76–95
[2019-11-29] MEDS: RT-ALBUTEROL INHALER HFA (VENTOLIN HFA) 8 GM IH SCH ×3 (03:46→14:52)
[2019-11-29] MEDS: LEVOTHYROXINE 75 MCG (LEVOTHROID) TABLET PO SCH (05:52)
[2019-11-29] MEDS: LEVOTHYROXINE 100 MCG (LEVOTHROID) TAB PO SCH (05:52)
[2019-11-29] MEDS: inSUlin ASPART (NovoLOG) 1 UNIT/0.01 ML (CHARGE PER UNIT) SC SCH ×6 (05:54→17:46)
[2019-11-29] MEDS: ENOXAPARIN 40 MG/0.4 ML (LOVENOX) SYR SC SCH ×2 (05:55→18:10)
[2019-11-29] MEDS: TRIAMTERENE/HCTZ 75-50 (MAXZIDE,DYAZIDE) TABLET PO SCH (08:22)
[2019-11-29] MEDS: DEXAMETHASONE 10 MG/ML (DECADRON) 1 ML VIAL IV SCH (08:22)
--- NOTE | 2019-11-29 13:32 | NUR ---
RT NOTIFIED OF HOME O2 ORDER
--- NOTE | 2019-11-29 15:04 | NUR ---
patient walked 200 feet and required 2L to maintain sat of 90%
[2019-11-29] MEDS ORDERED: cefTRIAXone FOR IV USE 2,000 MG in WATER (STERILE) FOR INJECTION 20 ML IV NR (15:15)
--- NOTE | 2019-11-29 15:32 | Discharge Summary ---
Discharge Summary Hospital Course Was the Problem List Reviewed?: Yes Problems/Dx: (1) COVID-19 Status: Acute (2) Acute respiratory failure with hypoxia Status: Acute (3) Insulin dependent diabetes mellitus Status: Chronic (4) Hypothyroidism Status: Chronic Qualifiers: Qualified Codes: E03.9 - Hypothyroidism, unspecified (5) Hypertension Status: Chronic Qualifiers: Qualified Codes: I10 - Essential (primary) hypertension (6) Hyperlipidemia Qualifiers: Qualified Codes: E78.49 - Other hyperlipidemia (7) Prophylactic measure Status: Acute (8) SARS-associated coronavirus infection Status: Acute (9) Pneumonia due to SARS-associated coronavirus Status: Acute Hospital Course Date of Admission: Nov 25, 2019 at 14:57 Admission Diagnosis : Acute respiratory failure with hypoxia due to COVID-19 Family Physician/Provider: Celine Castro Individual Small Group Instructor Date of Discharge: 11/29/19 Discharge Diagnosis: Acute respiratory failure with hypoxia due to COVID-19 Hospital Course: Evelin Jackson is a 54-year-old female who presented with shortness of breath and was admitted with acute respiratory failure with hypoxia due to COVID-19. Her symptoms had a started approximately 10 days prior to her presentation. Due to this, she was not a candidate for Remdesivir. She was given a course of Decadron. Her oxygen requirement decreased and she was on room air prior to discharge. Respiratory therapy performed an oxygen evaluation which determined that she needed 2 L with activity. She stated that her mother had an extra oxygen concentrator and tank at home. She will be set up with her own oxygen supplies on Monday due to the holiday weekend. She was discharged in stable condition. She should follow-up with her primary care physician. Labs and Pending Lab Test: Laboratory Tests 11/28/19 17:37: Glucometer 291H 11/28/19 20:13: Glucometer 277H 11/29/19 05:49: Glucometer 130H 11/29/19 11:45: Glucometer 214H Microbiology 11/25/19 Blood Culture - Preliminary, Resulted No growth Home Meds Active Reported Aleve (Naproxen Sodium) 220 Mg Capsule 440 Mg PO Q8H PRN Tylenol (Acetaminophen) 325 Mg Tablet 650 Mg PO Q6H PRN Visine Dry Eye Relief Drop (Peg 400/Hypromellose/Glycerin) 15 Ml Drops 2 Drops OU PRN PRN Zyrtec (Cetirizine HCl) 10 Mg Tablet 10 Mg PO DAILY PRN Ondansetron Odt (Ondansetron) 4 Mg Tab.rapdis 4 Mg PO TID PRN Metformin HCl 500 Mg Tablet 1,000 Mg PO BID TAKES 2 (500MG) TABS Novolog Flexpen (Insulin Aspart) 300 Units/3 Ml Solution 28 Units SQ AC LAST FILLED 02-18-2019 #10 PENS Levemir Flextouch (Insulin Detemir) 100 Unit/1 Ml Insuln.pen 65 Units SQ HS LAST FILLED 02-18-2019 #5 PENS Levothyroxine Sodium 175 Mcg Tablet 175 Mcg PO DAILY Rosuvastatin Calcium 20 Mg Tablet 40 Mg PO DAILY TAKES 2 (20MG) TABS Assessment/Pt Instructions Take medications as prescribed. Begin using supplemental oxygen 2 L with act ivity. He will be required to quarantine once you return home. The health department will be in contact with you with further instructions. Follow-up with your primary care physician. Discharge Planning: <30 minutes discharge planning Discharge Instructions Discharge Diet: No Restrictions Activity as Tolerated: Yes Discharge Physical Examination Vital Signs Vital Signs Date Time Temp Pulse Resp B/P (MAP) Pulse Ox O2 Delivery O2 Flow Rate FiO2 11/29/19 14:52 90 88 11/29/19 14:52 Room Air 11/29/19 11:49 36.9 20 140/87 (104) 11/29/19 08:09 2.00 11/28/19 11:04 36 General Appearance: No Apparent Distress, Obese HEENT: PERRL/EOMI, Pharynx Normal Respiratory: Lungs Clear, Normal Breath Sounds, No Respiratory Distress Cardiovascular: Regular Rate, Rhythm, No Edema, No Murmur Gastrointestinal: Normal Bowel Sounds, Non Tender, Soft Extremity: Normal Inspection, Non Tender, No Pedal Edema Skin: Normal Color, Warm/Dry Neurologic/Psychiatric: Alert, Oriented x3, No Motor/Sensory Deficits, Normal Mood/Affect Allergies: Coded Allergies: No Known Drug Allergies (Unverified , 02/12/10) Copy Copies To 1: [facility] Discharge Summary Date of Admission Nov 25, 2019 at 14:57 Date of Discharge Discharge Date: Nov 29, 2019 Discharge Time: 15:31 Admission Diagnosis Hypoxia from COVID19 Discharge Diagnosis (1) Acute respiratory failure with hypoxia Status: Acute (2) Insulin dependent diabetes mellitus Status: Chronic (3) Hypothyroidism Status: Chronic Qualifiers: Qualified Codes: E03.9 - Hypothyroidism, unspecified (4) Hypertension Status: Chronic Qualifiers: Qualified Codes: I10 - Essential (primary) hypertension (5) Hyperlipidemia Qualifiers: Qualified Codes: E78.49 - Other hyperlipidemia (6) Prophylactic measure Status: Acute (7) SARS-associated coronavirus infection Status: Acute (8) Pneumonia due to SARS-associated coronavirus Status: Acute Clinical Quality Measures DVT/VTE Risk/Contraindication: Risk Factor Score Per Nursin RFS Level Per Nursing on Admit: 3=High BEKA RAINES MD Nov 29, 2019 15:30
[2019-11-29] MEDS ORDERED: AZITHROMYCIN 250 MG TAB (ZITHROMAX) PO SCH (16:00)
--- NOTE | 2019-11-29 18:25 | NUR ---
SHAHANA SAMPSON demonstrates understanding of discharge instructions and accurately returns instructions upon questioning. Copy of Post-Discharge Instructions and Medication Discharge Instructions given to PT . SHAHANA SAMPSON iS Able to manage continuing needs after discharge. Patients belongings returned to PT. Skin dry and intact; no breakdown noted. Patient discharged from 432-1 on at 1825. SHAHANA SAMPSON left floor via wc, accompanied by staff.
== END 2019-11-29 18:25 | disposition home or self-care (01) | DRG 177 ==
LOC: EDUNIT# 12:47 → ER FS 12:50 → 4TH 14:57
PROVIDERS: ADMIT Internal Medicine; ATTEND Internal Medicine
DX: U07.1 COVID-19 (principal); J96.01 Acute respiratory failure with hypoxia; J12.89 Other viral pneumonia; E11.9 Type 2 diabetes mellitus without complications; I10 Essential (primary) hypertension; E78.00 Pure hypercholesterolemia, unspecified; E03.9 Hypothyroidism, unspecified; Z79.4 Long term (current) use of insulin
CPT/HCPCS: 36415; 71045; 80048; 80053; 82805; 82962; 83605; 83615; 83880; 84145; 84484; 85025; 85027; 85379; 85610; 85652; 85730; 86141; 87040; 93005; 94640; 94760; 94761; 96361; 96374

== ENCOUNTER 2020-02-28 18:08 | Inpatient (IN) | payer BC ==
[~2020-02-28] VITALS: Ht 160 cm; Wt 148.7 kg
[~2020-02-28 18:08] MED LIST changes: +ACET325T38 PO; +CETI10TA49 PO; +INSU100I14 SQ; +INSU100I29 SQ; +LEVO175T5 PO; +METF-397 PO; +NAPR220C11 PO; +ONDA4TAB11 PO; +PEG15DRO9 OU; +ROSU20TA32 PO; +TRIA1CAP4 PO
[2020-02-28] MEDS ORDERED: NS IV 1000 ML 1,000 ML IV SCH ×2 (18:45→20:30)
--- NOTE | 2020-02-28 18:51 | Diagnostic Imaging Report ---
EXAMINATION: Chest 1 view. HISTORY: Fever and nausea. COMPARISON: 11/26/2019. FINDINGS: The lung volumes are normal. Scattered alveolar opacities are present. No focal consolidation. No large pleural effusion or pneumothorax is seen. The cardiomediastinal silhouette is normal in size and contour. No acute osseous abnormality is seen. IMPRESSION: Scattered irregular opacities are seen, which may represent inflammatory or infectious etiology. No focal consolidations. No pleural effusion. Dictated by: Dictated on workstation # [id number]
[2020-02-28] MEDS ORDERED: morphine INJ 10 MG/ML 1ML (SYR OR VIAL) IVP STA (19:46)
[2020-02-28] MEDS ORDERED: ACETAMINOPHEN 500 MG TAB (TYLENOL) PO ONE (20:00)
[2020-02-28 20:03] LABS: BASOPHILS % (AUTO) 0 % (0-10); EOSINOPHILS % (AUTO) 0 % (0-10); HEMATOCRIT 33 % (35-52); HEMOGLOBIN 11.8 G/DL (11.5-16.0); LYMPHOCYTES # (AUTO) 0.4 X 10^3 (1.0-4.0); LYMPHOCYTES % (AUTO) 5 % (12-44); MEAN CORPUSCULAR HEMOGLOBIN 31 PG (25-34); MEAN CORPUSCULAR HGB CONC 35 G/DL (32-36); MEAN CORPUSCULAR VOLUME 87 FL (80-99); MEAN PLATELET VOLUME 10.9 FL (7.4-10.4); MONOCYTES # (AUTO) 0.6 X 10^3 (0.0-1.0); MONOCYTES % (AUTO) 7 % (0-12); NEUTROPHILS # (AUTO) 7.4 X 10^3 (1.8-7.8); NEUTROPHILS % (AUTO) 87 % (42-75); PLATELET COUNT 132 10^3/uL (130-400); WHITE BLOOD COUNT 8.4 10^3/uL (4.3-11.0)
--- NOTE | 2020-02-28 20:05 | ED Cough/URI ---
General Chief Complaint: Fever-Adult/Adol Stated Complaint: FEVER,NAUSEA,WEAKNESS Nursing Triage Note: pt reports fever and chills since monday, had flu test done and was negative, pt developed n/v today, pt had covid back in october. Sepsis Screen: Possible Severe Sepsis Risk Source: patient Exam Limitations: no limitations History of Present Illness Date Seen by Provider: Feb 28, 2020 Time Seen by Provider: 18:10 Initial Comments The patient is a pleasant obese 54-year-old female who presents for evaluation of fevers and chills since Monday. She had a flu test done on Monday which was negative. She's been having some intermittent nausea and vomiting today. She mentions that back in late October she was positive for COVID-19 and had fully recovered. She reports body aches and flulike symptoms. She has had a slight cough as well. She states that a few fine members have had similar but more mild flulike symptoms. Timing/Duration: other (2-3 days) Severity/Quality: mild Modifying Factors: Improves With Rest (helps) Allergies and Home Medications Allergies Coded Allergies: No Known Drug Allergies (Unverified , 02/12/10) Home Medications Acetaminophen 325 Mg Tablet, 650 MG PO Q6H PRN for PAIN-MILD (1-4), (Reported) Cetirizine HCl 10 Mg Tablet, 10 MG PO DAILY PRN for ALLERGY SYMPTOMS, (Reported) Insulin Aspart 300 Units/3 Ml Solution, 28 UNITS SQ AC, (Reported) LAST FILLED 02-18-2019 #10 PENS Insulin Detemir 100 Unit/1 Ml Insuln.pen, 65 UNITS SQ HS, (Reported) LAST FILLED 02-18-2019 #5 PENS Levothyroxine Sodium 175 Mcg Tablet, 175 MCG PO DAILY, (Reported) Metformin HCl 500 Mg Tablet, 1,000 MG PO BID, (Reported) TAKES 2 (500MG) TABS Naproxen Sodium 220 Mg Capsule, 440 MG PO Q8H PRN for PAIN-MILD (1-4), (Reported) Ondansetron 4 Mg Tab.rapdis, 4 MG PO TID PRN for NAUSEA/VOMITING-1ST LINE, (Reported) Peg 400/Hypromellose/Glycerin 15 Ml Drops, 2 DROPS OU PRN PRN for DRY EYES, (Reported) Rosuvastatin Calcium 20 Mg Tablet, 40 MG PO DAILY, (Reported) TAKES 2 (20MG) TABS Patient Home Medication List Home Medication List Reviewed: Yes Review of Systems Review of Systems Constitutional: chills, fever EENTM: no symptoms reported Respiratory: cough Cardiovascular: no symptoms reported Gastrointestinal: nausea, vomiting Genitourinary: no symptoms reported Musculoskeletal: no symptoms reported Skin: no symptoms reported Psychiatric/Neurological: No Symptoms Reported Hematologic/Lymphatic: No Symptoms Reported Immunological/Allergic: no symptoms reported All Other Systems Reviewed Negative Unless Noted: Yes Past Jvmnyum-Uabivu-Kpwbis Hx Past Med/Social Hx: Reviewed Nursing Past Med/Soc Hx Patient Social History Alcohol Use: Denies Use Recreational Drug Use: No Smoking Status: Never a Smoker 2nd Hand Smoke Exposure: No Recent Foreign Travel: No Contact w/Someone Who Travel: No Recent Infectious Disease Expo: No Recent Hopitalizations: No Physical Abuse: No Sexual Abuse: No Mistreated: No Fear: No Immunizations Up To Date Date of Pneumonia Vaccine: September 27, 2019 Seasonal Allergies Seasonal Allergies: No Past Medical History Surgeries: Yes Gallbladder, Hysterectomy Respiratory: No Cardiac: Yes High Cholesterol, Hypertension Neurological: No Genitourinary: No Gastrointestinal: No Musculoskeletal: No Endocrine: Yes Diabetes, Insulin dep, Hypothyroidsim HEENT: No Cancer: No Psychosocial: No Integumentary: No Blood Disorders: No Adverse Reaction/Blood Tranf: No Family Medical History Cardiovascular disease 19 FATHER 19 MOTHER G8 BROTHER Diabetes mellitus 19 FATHER 19 MOTHER G8 BROTHER Hypertension 19 MOTHER G8 BROTHER Respiratory disorder 19 FATHER Thyroid disease 19 MOTHER Physical Exam Vital Signs - First Documented 02/28/20 19:14 Temp 37.3 Pulse 116 Resp 18 B/P (MAP) 139/88 (105) Pulse Ox 95 O2 Delivery Room Air Capillary Refill : Less Than 3 Seconds Height: '" Weight: lbs. oz. kg; 52.00 BMI Method: General Appearance: WD/WN, no apparent distress, obese Eyes: Bilateral Eye Normal Inspection, Bilateral Eye PERRL, Bilateral Eye EOMI HEENT: PERRL/EOMI, normal ENT inspection Neck: non-tender, full range of motion, normal inspection, other (negative Kernig's and Brudzinski's signs) Respiratory: chest non-tender, lungs clear, normal breath sounds, no respiratory distress, no accessory muscle use Cardiovascular: regular rate, rhythm, no edema, no JVD Gastrointestinal: normal bowel sounds, non tender, soft, no pulsatile mass Extremities: normal range of motion, non-tender, normal inspection, no pedal edema 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, no motor/sensory deficits, alert, normal mood/affect, oriented x 3 Skin: normal color, warm/dry Lymphatic: no adenopathy Focused Exam Lactate Level 02/28/20 19:50: Lactic Acid Level 0.20L Lactic Acid Level Laboratory Tests Test 02/28/20 19:50 Lactic Acid Level 0.20 MMOL/L (0.50-2.00) L Progress/Results/Core Measures Suspected Sepsis Recent Fever Within 48 Hours: Yes Infection Criteria Present: Suspected New Infection New/Unexplained Altered Menta: No Sepsis Screen: Possible Severe Sepsis Risk SIRS Temperature: Pulse: 116 Respiratory Rate: 18 Laboratory Tests 02/28/20 19:50: White Blood Count 8.4 Blood Pressure 139 /88 Mean: 105 02/28/20 19:50: Lactic Acid Level 0.20L Laboratory Tests 02/28/20 19:50: Creatinine 3.06H, Platelet Count 132, Total Bilirubin 0.8 Results/Orders Lab Results Laboratory Tests Test 02/28/20 19:50 Range/Units White Blood Count 8.4 4.3-11.0 10^3/uL Red Blood Count 3.84 L 4.35-5.85 10^6/uL Hemoglobin 11.8 11.5-16.0 G/DL Hematocrit 33 L 35-52 % Mean Corpuscular Volume 87 80-99 FL Mean Corpuscular Hemoglobin 31 25-34 PG Mean Corpuscular Hemoglobin Concent 35 32-36 G/DL Red Cell Distribution Width 12.1 10.0-14.5 % Platelet Count 132 130-400 10^3/uL Mean Platelet Volume 10.9 H 7.4-10.4 FL Immature Granulocyte % (Auto) 1 % Neutrophils (%) (Auto) 87 H 42-75 % Lymphocytes (%) (Auto) 5 L 12-44 % Monocytes (%) (Auto) 7 0-12 % Eosinophils (%) (Auto) 0 0-10 % Basophils (%) (Auto) 0 0-10 % Neutrophils # (Auto) 7.4 1.8-7.8 X 10^3 Lymphocytes # (Auto) 0.4 L 1.0-4.0 X 10^3 Monocytes # (Auto) 0.6 0.0-1.0 X 10^3 Eosinophils # (Auto) 0.0 0.0-0.3 10^3/uL Basophils # (Auto) 0.0 0.0-0.1 10^3/uL Immature Granulocyte # (Auto) 0.0 0.0-0.1 10^3/uL Sodium Level 126 L 135-145 MMOL/L Potassium Level 4.0 3.6-5.0 MMOL/L Chloride Level 88 L 98-107 MMOL/L Carbon Dioxide Level 19 L 21-32 MMOL/L Anion Gap 19 H 5-14 MMOL/L Blood Urea Nitrogen 50 H 7-18 MG/DL Creatinine 3.06 H 0.60-1.30 MG/DL Estimat Glomerular Filtration Rate 16 BUN/Creatinine Ratio 16 Glucose Level 503 *H 70-105 MG/DL Lactic Acid Level 0.20 L 0.50-2.00 MMOL/L Calcium Level 8.1 L 8.5-10.1 MG/DL Corrected Calcium 9.1 8.5-10.1 MG/DL Total Bilirubin 0.8 0.1-1.0 MG/DL Aspartate Amino Transf (AST/SGOT) 26 5-34 U/L Alanine Aminotransferase (ALT/SGPT) 23 0-55 U/L Alkaline Phosphatase 120 40-136 U/L Total Protein 6.3 L 6.4-8.2 GM/DL Albumin 2.8 L 3.2-4.5 GM/DL My Orders Orders - ELIECER WILL DO Cbc With Automated Diff (02/28/20 18:34) Comprehensive Metabolic Panel (02/28/20 18:34) Blood Culture (02/28/20 18:34) Lactic Acid Analyzer (02/28/20 18:34) Chest 1 View Ap/Pa Only (02/28/20 18:34) Ns Iv 1000 Ml (Sodium Chloride 0.9%) (02/28/20 18:45) Acetaminophen Tablet (Tylenol Tablet) (02/28/20 20:00) Morphine Injection (Morphine Injection (02/28/20 19:46) Insulin (Regular) Human (Novolin R (Per (02/28/20 20:30) Ns Iv 1000 Ml (Sodium Chloride 0.9%) (02/28/20 20:30) Ondansetron Injection (Zofran Injectio (02/28/20 20:30) Medications Given in ED Current Medications Medications Dose Ordered Sig/Nicole Route Start Time Stop Time Status Last Admin Dose Admin Acetaminophen 1,000 mg ONCE ONCE PO 02/28/20 20:00 02/28/20 20:01 DC 02/28/20 19:51 1,000 MG Vital Signs/I&O 02/28/20 19:14 Temp 37.3 Pulse 116 Resp 18 B/P (MAP) 139/88 (105) Pulse Ox 95 O2 Delivery Room Air Capillary Refill : Less Than 3 Seconds Blood Pressure Mean: 105 Progress Note : Progress Note @2029 - patient updated on lab and imaging results. I'm concerned with the patient's increase in her creatinine, her hyponatremia, and her dehydration and strongly encouraged admission to which the patient agrees. Dr. Snyder accepts the admission at [facility] to the ICU. Diagnostic Imaging Diagonstic Imaging: Xray Comments [facility], [place] NAME: SHAHANA SAMPSON [facility] REC#: [id number] PT STATUS: REG ER : 1965 PHYSICIAN: ELIECER WILL DO ADMIT DATE: 02/28/20/ER FS Signed Date of Exam:02/28/20 CHEST 1 VIEW AP/PA ONLY EXAMINATION: Chest 1 view. HISTORY: Fever and nausea. COMPARISON: 11/26/2019. FINDINGS: The lung volumes are normal. Scattered alveolar opacities are present. No focal consolidation. No large pleural effusion or pneumothorax is seen. The cardiomediastinal silhouette is normal in size and contour. No acute osseous abnormality is seen. IMPRESSION: Scattered irregular opacities are seen, which may represent inflammatory or infectious etiology. No focal consolidations. No pleural effusion. Dictated by: Dictated on workstation # [id number] Dict: 02/28/201847 Trans: 02/28/201899 [facility] [id number] Interpreted by: MARION GILL DO Electronically signed by: MARION GILL DO 02/28/201899 Departure Communication (Admissions) Time/Spoke to Admitting Phy: 20:31 Dr. Snyder accepts the patient for admission at [facility] to the ICU Impression Primary Impression: Hyperglycemia Additional Impressions: Dehydration Flu-like symptoms Acute kidney injury Hyponatremia Disposition: ADMITTED INPATIENT Condition: Stable Admissions Decision to Admit Reason: Admit from ER (General) Decision to Admit/Date: Feb 28, 2020 Time/Decision to Admit Time: 20:31 Departure-Patient Inst. Referrals: [facility] (PCP) Primary Care Physician NEO WOODALL APRN (Family) Primary Care Physician ELIECER WILL DO Feb 28, 2020 20:05
[2020-02-28 20:15] LABS: ALBUMIN 2.8 GM/DL (3.2-4.5); BILIRUBIN,TOTAL 0.8 MG/DL (0.1-1.0); CALCIUM 8.1 MG/DL (8.5-10.1); CREATININE SERUM 3.06 MG/DL (0.60-1.30); TOTAL PROTEIN 6.3 GM/DL (6.4-8.2)
[2020-02-28] MEDS ORDERED: inSUlin (REGULAR) HUMAN 1 UNIT/0.01 ML (CHARGE PER UNIT) IV ONE (20:30)
[2020-02-28] MEDS ORDERED: ONDANSETRON 4 MG/2 ML (SDV) Z0FRAN IVP ONE (20:30)
[2020-02-28 20:36] LABS: LYMPHOCYTES % (MANUAL) 3 %; MONOCYTES % (MANUAL) 6 %; NEUTROPHILS % (MANUAL) 91 %
--- NOTE | 2020-02-28 23:00 | NUR ---
ems here report and care given
[2020-02-28] MEDS ORDERED: 1/2 NS IV SOLUTION 1,000 ML IV ONE (23:52)
[2020-02-28 23:53] VITALS: BP 96/64
[2020-02-28] MEDS ORDERED: POTASSIUM CL 10MEQ/50ML IVPB 50 ML IV ONE (23:53)
[2020-02-29] VITALS (27 sets, daily range): BP systolic 84–147; BP diastolic 48–87
[2020-02-29] MEDS ORDERED: NS IV 1000 ML 1,000 ML IV SCH ×4 (00:15→06:15)
[2020-02-29] MEDS ORDERED: HYDROcodone/APAP 5 MG/325 MG (LORTAB) TAB PO PRN (00:30)
[2020-02-29] MEDS ORDERED: diphenhydrAMINE 25 MG TAB (BENADRYL) PO PRN (00:30)
[2020-02-29] MEDS ORDERED: MELATONIN 3 MG TABLET PO PRN (00:30)
[2020-02-29] MEDS ORDERED: CALCIUM CARBONATE 500 MG (TUMS) TAB.CHEW PO PRN (00:30)
[2020-02-29] MEDS ORDERED: inSUlin (REGULAR) HUMAN 1 UNIT/0.01 ML (CHARGE PER UNIT) IV ONE (00:30)
[2020-02-29] MEDS ORDERED: guaiFENesin/CODEINE (ROBITUSSIN AC) 10ML UDC PO PRN (00:30)
[2020-02-29] MEDS ORDERED: LOPERAMIDE 2 MG (IMODIUM) TABLET PO PRN (00:30)
[2020-02-29] MEDS ORDERED: DOCUSATE SODIUM 100 MG (COLACE) CAP PO PRN (00:30)
[2020-02-29] MEDS ORDERED: ACETAMINOPHEN 500 MG TAB (TYLENOL) PO PRN (00:30)
[2020-02-29] MEDS ORDERED: ENOXAPARIN 40 MG/0.4 ML (LOVENOX) SYR SC SCH (00:30)
[2020-02-29 00:56] LABS: HEMOGLOBIN 10.8 g/dL (11.5-16.0); MEAN PLATELET VOLUME 11.1 fL (9.0-12.2); POTASSIUM 3.9 MMOL/L (3.6-5.0); WHITE BLOOD COUNT 8.7 10^3/uL (4.3-11.0)
[2020-02-29 00:57] LABS: CALCIUM 7.7 MG/DL (8.5-10.1)
[2020-02-29 01:02] LABS: CREATININE SERUM 3.56 MG/DL (0.60-1.30)
[2020-02-29] MEDS ORDERED: RT-ALBUTEROL INHALER HFA (VENTOLIN HFA) 18 GM IH PRN (01:30)
[2020-02-29 01:36] LABS: ABG BASE EXCESS -0.9 MMOL/L (-2.5-2.5); ABG OXYGEN SATURATION 33 % (94-100); ABG PCO2 45 MMHG (35-45); ABG TCO2 25.5 MMOL/L (21.0-31.0)
[2020-02-29 01:55] LABS: ABG PH 7.34 (7.37-7.43)
[2020-02-29 01:56] LABS: ABG PO2 28 MMHG (79-93); ALLENS TEST YES-POS; INSPIRED O2 3L; PATIENT TEMP 36.7; VENTILATOR NO
[2020-02-29 03:56] LABS: BASOPHILS % (AUTO) 0 % (0-10); EOSINOPHILS % (AUTO) 0 % (0-10); HEMATOCRIT 32 % (35-52); HEMOGLOBIN 10.9 g/dL (11.5-16.0); LYMPHOCYTES # (AUTO) 0.7 10^3/uL (1.0-4.0); LYMPHOCYTES % (AUTO) 9 % (12-44); MEAN CORPUSCULAR HEMOGLOBIN 31 pg (25-34); MEAN CORPUSCULAR HGB CONC 35 g/dL (32-36); MEAN CORPUSCULAR VOLUME 89 fL (80-99); MEAN PLATELET VOLUME 11.1 fL (9.0-12.2); MONOCYTES # (AUTO) 0.3 10^3/uL (0.0-1.0); MONOCYTES % (AUTO) 4 % (0-12); NEUTROPHILS # (AUTO) 6.6 10^3/uL (1.8-7.8); NEUTROPHILS % (AUTO) 86 % (42-75); PLATELET COUNT 129 10^3/uL (130-400); WHITE BLOOD COUNT 7.7 10^3/uL (4.3-11.0)
[2020-02-29 04:17] LABS: CALCIUM 7.7 MG/DL (8.5-10.1); CREATININE SERUM 3.82 MG/DL (0.60-1.30); MAGNESIUM 1.6 MG/DL (1.6-2.4); PHOSPHORUS 3.4 MG/DL (2.3-4.7); POTASSIUM 3.5 MMOL/L (3.6-5.0)
[2020-02-29] MEDS: POTASSIUM CL 10MEQ/50ML IVPB 50 ML IV SCH ×3 (06:13→14:33)
[2020-02-29] MEDS: KCL 20 MEQ TAB (K-DUR) PO SCH (06:14)
[2020-02-29] MEDS: MAGNESIUM 1 GM/100 ML IVPB 100 ML IV SCH (06:14)
[2020-02-29] MEDS: NS IV 1000 ML 1,000 ML IV SCH ×3 (06:25→22:06)
--- NOTE | 2020-02-29 06:48 | History & Physical-Hospitalist ---
History of Present Illness HPI/Chief Complaint CC: Hyperglycemia w/ARF HPI: This is a 54yoWF clinic patient of [facility] who was admitted to [facility] in November 2019 after respiratory compromise with COVID-19 who ultimately went home with O2 to use prn and felt well until Monday when she began chilling and feeling week and feverish. ER assessed her to have N/V and ARF with creat 3.0 so she was admitted to ICU on insulin drip but further w/u for fever and chills revealed elevated PCT and w/u ensued along with repeat COVID swab. Ultimately UTI diagnosed and abx initiated but remains critical on Vapotherm in ICU. Source: patient Exam Limitations: no limitations Date Seen 02/29/20 Time Seen by a Provider: 10:00 Attending Physician Sissy Snyder DO [facility] Referring Physician Date of Admission Feb 28, 2020 at 20:28 Home Medications & Allergies Home Medications Reviewed patient Home Medication Reconciliation performed by pharmacy medication reconciliations retail pharmacy technician and/or nursing. Patients Allergies have been reviewed. Allergies Allergies Coded Allergies No Known Drug Allergies (Unverified02/12/10) Past Ynvruqw-Icdqrw-Unycwx Hx Past Med/Social Hx: Reviewed Nursing Past Med/Soc Hx, Reviewed and Corrections made Patient Social History Marrital Status: single Employed/Student: employed Alcohol Use: Denies Use Recreational Drug Use: No Smoking Status: Never a Smoker 2nd Hand Smoke Exposure: No Recent Foreign Travel: No Contact w/other who traveled: No Recent Hopitalizations: No Recent Infectious Disease Expo: No Immunizations Up To Date Date of Pneumonia Vaccine: September 27, 2019 Seasonal Allergies Seasonal Allergies: No Past Medical History Surgeries: Gallbladder, Hysterectomy Respiratory: Pneumonia, Sleep Apnea COVID November 2019 Cardiac: High Cholesterol, Hypertension Endocrine: Diabetes, Insulin dep, Hypothyroidsim History of Blood Disorders: No Adverse Reaction to Blood [place]: No Family History Cardiovascular disease 19 FATHER 19 MOTHER G8 BROTHER Diabetes mellitus 19 FATHER 19 MOTHER G8 BROTHER Hypertension 19 MOTHER G8 BROTHER Respiratory disorder 19 FATHER Thyroid disease 19 MOTHER Review of Systems Constitutional: see HPI, chills, fever, malaise, weakness Respiratory: cough, dyspnea on exertion Physical Exam Physical Exam Vital Signs Vital Signs - First Documented 02/28/20 02/28/20 19:14 23:53 Temp 37.3 Pulse 116 Resp 18 B/P (MAP) 139/88 (105) Pulse Ox 95 O2 Delivery Room Air O2 Flow Rate 2.00 FiO2 2 Capillary Refill : Less Than 3 Seconds Height, Weight, BMI Height: '" Weight: lbs. oz. kg; 52.92 BMI Method: General Appearance: Anxious, Chronically ill, Mild Distress, Obese Eyes: Right Eye Normal Inspection, Right Eye PERRL HEENT: PERRL/EOMI, Normal ENT Inspection, Pharynx Normal, Moist Mucous Membranes Neck: Full Range of Motion, Normal Inspection, Non Tender Respiratory: Chest Non Tender, Lungs Clear, Normal Breath Sounds, No Accessory Muscle Use, No Respiratory Distress Cardiovascular: Regular Rate, Rhythm, No Edema, No Gallop, No JVD, No Murmur, Normal Peripheral Pulses Gastrointestinal: Normal Bowel Sounds, No Organomegaly, No Pulsatile Mass, Non Tender, Soft Back: Normal Inspection, No CVA Tenderness, No Vertebral Tenderness Extremity: Normal Capillary Refill, Normal Inspection, Normal Range of Motion, Non Tender, No Calf Tenderness, No Pedal Edema Neurologic/Psychiatric: Alert, Oriented x3, No Motor/Sensory Deficits, Normal Mood/Affect Skin: Normal Color, Warm/Dry Lymphatic: No Adenopathy Results Results/Procedures Labs Laboratory Tests 02/28/20 19:50 02/29/20 00:30 02/29/20 03:05 02/29/20 08:31 Patient resulted labs reviewed. Assessment/Plan Admission Diagnosis Assessment: Hyperglycemia requiring insulin drip Sepsis from UTI Hypoxia with h/o COVID 15 December 2019 5 days inpatient [facility] ARF CRI LYNDSEY on CPAP Hypoxia on O2 at home since COVID-19 prn DM HTN Plan: Abx O2 Monitor closely Insulin drip Admission Status: Inpatient Order (span 2 midnights) Reason for Inpatient Admission: sepsis Diagnosis/Problems Diagnosis/Problems (1) Hyperglycemia Status: Acute (2) UTI (urinary tract infection) (3) Acute kidney injury Status: Acute (4) Flu-like symptoms Status: Acute (5) Hyponatremia Status: Acute (6) Dehydration Status: Acute Clinical Quality Measures DVT/VTE Risk/Contraindication: Risk Factor Score Per Nursin RFS Level Per Nursing on Admit: 3=High SISSY SNYDER DO Feb 29, 2020 06:48
[2020-02-29] MEDS: ENOXAPARIN 60 MG/0.6 ML (LOVENOX) SYR SC SCH ×2 (08:06→21:14)
[2020-02-29] MEDS: polyethylene glycoL POWDER 17 GM (MIRALAX) PACK PO SCH ×2 (08:07→21:14)
[2020-02-29] MEDS: SENNA W/DOCUSATE (SENOKOT S) TABLET PO SCH ×2 (08:07→21:13)
[2020-02-29 08:56] LABS: CALCIUM 7.6 MG/DL (8.5-10.1); CREATININE SERUM 3.69 MG/DL (0.60-1.30); POTASSIUM 3.2 MMOL/L (3.6-5.0)
[2020-02-29] MEDS: RT-ALBUTEROL INHALER HFA (VENTOLIN HFA) 18 GM IH SCH ×2 (09:46→14:43)
[2020-02-29] MEDS: ALPRAZolam 0.25 MG (XANAX) TAB PO PRN (10:42)
[2020-02-29] MEDS: ONDANSETRON 4 MG/2 ML (SDV) Z0FRAN IVP PRN (10:43)
[2020-02-29 15:45] LABS: ABG BASE EXCESS -2.8 MMOL/L (-2.5-2.5); ABG OXYGEN SATURATION 98 % (94-100); ABG PCO2 37 MMHG (35-45); ABG PH 7.38 (7.37-7.43); ABG PO2 101 MMHG (79-93); ABG TCO2 22.6 MMOL/L (21.0-31.0)
[2020-02-29 15:49] LABS: CLARITY,URINE CLOUDY; COLOR,URINE YELLOW; PH,URINE 5.5 (5-9)
[2020-02-29 15:50] LABS: AMORPHOUS SEDIMENT,UR LARGE AMOR URATES /LPF; BACTERIA,URINE LARGE /HPF; BILIRUBIN,URINE NEGATIVE (NEGATIVE); GLUCOSE, URINE (UA) NEGATIVE (NEGATIVE); KETONES,URINE NEGATIVE (NEGATIVE); LEUKOCYTE ESTERASE ,URINE 3+ (NEGATIVE); NITRITE,URINE NEGATIVE (NEGATIVE); PROTEIN,URINE 2+ (NEGATIVE); WBC,URINE >100 /HPF
[2020-02-29 16:04] LABS: ALLENS TEST ARTLINE; INSPIRED O2 ROOM AIR; PATIENT TEMP 37; VENTILATOR NO
[2020-03-01] VITALS (21 sets, daily range): BP systolic 94–163; BP diastolic 54–111
--- NOTE | 2020-03-01 06:16 | Progress Note - Hospitalist ---
Subjective HPI/CC On Admission Date Seen by Provider: Mar 01, 2020 Time Seen by Provider: 10:30 CC: Hyperglycemia w/ARF HPI: This is a 54yoWF clinic patient of [facility] who was admitted to [facility] in November 2019 after respiratory compromise with COVID-19 who ultimately went home with O2 to use prn and felt well until Monday when she began chilling and feeling week and feverish. ER assessed her to have N/V and ARF with creat 3.0 so she was admitted to ICU on insulin drip but further w/u for fever and chills revealed elevated PCT and w/u ensued along with repeat COVID swab. Ultimately UTI diagnosed and abx initiated but remains critical on Vapotherm in ICU. Subjective/Events-last exam Patient much improved since IV abx initiated for pyelonephritis and BCx with GN violeta IVF maintained Vapotherm maintained CT scan for ARF source Output not the best Creatinine 4.1 Transitioned to SQ insulin from insulin drip Eating now Review of Systems General: Fatigue, Malaise Focused Exam Lactate Level 02/28/20 19:50: Lactic Acid Level 0.20L 02/29/20 12:20: Lactic Acid Level 2.14*H 02/29/20 14:43: Lactic Acid Level 1.10 Objective Exam Vital Signs Vital Signs Date Time Temp Pulse Resp B/P (MAP) Pulse Ox O2 Delivery O2 Flow Rate FiO2 03/01/20 17:00 122 28 146/85 (105) 91 High Flow N/C 8.00 03/01/20 04:00 80 03/01/20 00:06 36.0 Capillary Refill : Less Than 3 Seconds General Appearance: No Apparent Distress, WD/WN, Chronically ill Respiratory: Chest Non Tender, Lungs Clear, Normal Breath Sounds, No Accessory Muscle Use, No Respiratory Distress Cardiovascular: Regular Rate, Rhythm, No Edema, No Gallop, No JVD, No Murmur, Normal Peripheral Pulses Neurologic/Psychiatric: Alert, Oriented x3, No Motor/Sensory Deficits, Normal Mood/Affect Results/Procedures Lab Laboratory Tests 03/01/20 07:05 Patient resulted labs reviewed. Assessment/Plan Assessment and Plan Assess & Plan/Chief Complaint Assessment: Hyperglycemia requiring insulin drip now changed to SQ insulin Sepsis from UTI placed on abx awaiting Cx results Hypoxia with h/o COVID 15 December 2019 5 days inpatient [facility] now COVID repeat swab negative ARF CRI LYNDSEY on CPAP Hypoxia on O2 at home since COVID-19 prn DM HTN Plan: Abx O2 Monitor closely Insulin drip moved to Diagnosis/Problems Diagnosis/Problems (1) Hyperglycemia Status: Acute (2) UTI (urinary tract infection) (3) Acute kidney injury Status: Acute (4) Flu-like symptoms Status: Acute (5) Hyponatremia Status: Acute (6) Dehydration Status: Acute Clinical Quality Measures DVT/VTE Risk/Contraindication: Risk Factor Score Per Nursin RFS Level Per Nursing on Admit: 3=High IMMANUEL MERINO DO Mar 01, 2020 06:16
--- NOTE | 2020-03-01 06:29 | NUR ---
PTD Vancomycin - Crcl of 29ml/min using adjusted bodyweight. Loading Dose of 2gm over 2 hours, then 750mg every 24 hours.
[2020-03-01] MEDS ORDERED: VANCOMYCIN INJECTION 1,000 MG in NS (IVPB) 250 ML IV SCH (06:30)
[2020-03-01] MEDS ORDERED: PIPERACILLIN/TAZOBACTAM (BULK) 4.5 GM in NS (IVPB) 100 ML IV SCH (06:30)
[2020-03-01] MEDS: POTASSIUM CL 10MEQ/50ML IVPB 50 ML IV SCH (06:53)
[2020-03-01] MEDS: MAGNESIUM 1 GM/100 ML IVPB 100 ML IV SCH (06:53)
[2020-03-01] MEDS: KCL 20 MEQ TAB (K-DUR) PO SCH (06:53)
[2020-03-01] MEDS ORDERED: PIPERACILLIN/TAZOBACTAM (BULK) 4.5 GM in NS (IVPB) 100 ML IV NR (07:00)
[2020-03-01 07:14] LABS: BASOPHILS % (AUTO) 0 % (0-10); EOSINOPHILS # (AUTO) 0.1 10^3/uL (0.0-0.3); EOSINOPHILS % (AUTO) 1 % (0-10); HEMATOCRIT 30 % (35-52); HEMOGLOBIN 10.3 g/dL (11.5-16.0); LYMPHOCYTES # (AUTO) 1.3 10^3/uL (1.0-4.0); LYMPHOCYTES % (AUTO) 12 % (12-44); MEAN CORPUSCULAR HEMOGLOBIN 31 pg (25-34); MEAN CORPUSCULAR HGB CONC 35 g/dL (32-36); MEAN CORPUSCULAR VOLUME 88 fL (80-99); MEAN PLATELET VOLUME 10.3 fL (9.0-12.2); MONOCYTES # (AUTO) 0.9 10^3/uL (0.0-1.0); MONOCYTES % (AUTO) 8 % (0-12); NEUTROPHILS % (AUTO) 76 % (42-75); PLATELET COUNT 123 10^3/uL (130-400); WHITE BLOOD COUNT 10.6 10^3/uL (4.3-11.0)
[2020-03-01 07:23] LABS: ALBUMIN 2.6 GM/DL (3.2-4.5); POTASSIUM 3.4 MMOL/L (3.6-5.0)
[2020-03-01 07:24] LABS: CALCIUM 7.7 MG/DL (8.5-10.1)
[2020-03-01 07:25] LABS: TOTAL PROTEIN 5.6 GM/DL (6.4-8.2)
[2020-03-01 07:27] LABS: BILIRUBIN,TOTAL 0.8 MG/DL (0.1-1.0)
[2020-03-01 07:28] LABS: PHOSPHORUS 2.9 MG/DL (2.3-4.7)
[2020-03-01 07:29] LABS: CREATININE SERUM 4.13 MG/DL (0.60-1.30)
[2020-03-01 07:32] LABS: MAGNESIUM 1.6 MG/DL (1.6-2.4)
[2020-03-01] MEDS ORDERED: VANCOMYCIN 2000 MG/NS 500 ML IVPB IV NR ×2 (08:00)
--- NOTE | 2020-03-01 08:16 | Diagnostic Imaging Report ---
INDICATION: Diabetic ketoacidosis. COMPARISON STUDY: Chest from 2 days ago. FINDINGS: Portable view of the chest demonstrates cardiomegaly with interval development of pulmonary congestion. No pleural effusions are present. IMPRESSION: There is cardiomegaly with interval development of pulmonary vascular congestion. Dictated by: Dictated on workstation # [id number]
[2020-03-01] MEDS: SENNA W/DOCUSATE (SENOKOT S) TABLET PO SCH ×2 (11:00→21:26)
[2020-03-01] MEDS: polyethylene glycoL POWDER 17 GM (MIRALAX) PACK PO SCH ×2 (11:00→21:26)
[2020-03-01] MEDS: ENOXAPARIN 60 MG/0.6 ML (LOVENOX) SYR SC SCH ×2 (11:00→21:24)
[2020-03-01] MEDS: NS IV 1000 ML 1,000 ML IV SCH ×2 (11:01→22:55)
[2020-03-01] MEDS: inSUlin ASPART (NovoLOG) 1 UNIT/0.01 ML (CHARGE PER UNIT) SC SCH ×3 (11:58→21:26)
[2020-03-01] MEDS: RT-ALBUTEROL INHALER HFA (VENTOLIN HFA) 18 GM IH SCH ×2 (14:17→20:00)
[2020-03-01] MEDS: ALPRAZolam 0.25 MG (XANAX) TAB PO PRN (15:01)
[2020-03-01] MEDS: ONDANSETRON 4 MG/2 ML (SDV) Z0FRAN IVP PRN (15:01)
[2020-03-01] MEDS: PIPERACILLIN/TAZOBACTAM (BULK) 4.5 GM in NS (IVPB) 100 ML IV SCH ×2 (17:16→21:26)
[2020-03-01] MEDS ORDERED: METOCLOPRAMIDE INJ 10 MG/2 ML (REGLAN) IVP PRN ×2 (18:15→20:45)
[2020-03-01] MEDS ORDERED: METOCLOPRAMIDE INJ 10 MG/2 ML (REGLAN) ONE (18:23)
--- NOTE | 2020-03-01 20:10 | Diagnostic Imaging Report ---
PROCEDURE: CT abdomen and pelvis without contrast. TECHNIQUE: Multiple contiguous axial images were obtained through the abdomen and pelvis without the use of intravenous contrast. Auto Exposure Controls were utilized during the CT exam to meet ALARA standards for radiation dose reduction. INDICATION: Acute kidney injury. Hydronephrosis. COMPARISON: None. FINDINGS: The heart is unremarkable. Small bilateral pleural effusions are seen with bibasilar opacities. The liver, spleen, pancreas, adrenal glands and kidneys have a normal appearance. There is no pathologically enlarged mesenteric or retroperitoneal adenopathy. The bowel loops are nondilated. The appendix is visualized in the right lower quadrant and has a normal appearance. There is no free fluid or free air. The osseous structures are age-appropriate. The urinary bladder is decompressed with a Hadley in place. There is no free air, loculated collection or adenopathy in the pelvis. IMPRESSION: 1. No evidence of renal calculi or hydronephrosis. The urinary bladder is decompressed with a Hadley in place. 2. No evidence of bowel obstruction, free fluid or free air. Normal appendix in the right lower quadrant. 3. Small bilateral pleural effusions with bibasilar opacities, favored to represent atelectasis. Dictated by: Dictated on workstation # [id number]
[2020-03-02] VITALS (21 sets, daily range): BP systolic 102–168; BP diastolic 65–116
[2020-03-02 04:11] LABS: BASOPHILS % (AUTO) 0 % (0-10); EOSINOPHILS # (AUTO) 0.1 10^3/uL (0.0-0.3); EOSINOPHILS % (AUTO) 0 % (0-10); HEMATOCRIT 29 % (35-52); HEMOGLOBIN 9.9 g/dL (11.5-16.0); LYMPHOCYTES # (AUTO) 1.6 10^3/uL (1.0-4.0); LYMPHOCYTES % (AUTO) 13 % (12-44); MEAN CORPUSCULAR HEMOGLOBIN 31 pg (25-34); MEAN CORPUSCULAR HGB CONC 34 g/dL (32-36); MEAN CORPUSCULAR VOLUME 89 fL (80-99); MONOCYTES # (AUTO) 1.4 10^3/uL (0.0-1.0); MONOCYTES % (AUTO) 12 % (0-12); NEUTROPHILS # (AUTO) 8.8 10^3/uL (1.8-7.8); NEUTROPHILS % (AUTO) 73 % (42-75); PLATELET COUNT 133 10^3/uL (130-400)
[2020-03-02 04:24] LABS: POTASSIUM 3.9 MMOL/L (3.6-5.0)
[2020-03-02 04:25] LABS: CALCIUM 7.6 MG/DL (8.5-10.1)
[2020-03-02 04:30] LABS: CREATININE SERUM 4.39 MG/DL (0.60-1.30); PHOSPHORUS 4.1 MG/DL (2.3-4.7)
[2020-03-02 04:33] LABS: MAGNESIUM 1.7 MG/DL (1.6-2.4)
--- NOTE | 2020-03-02 04:53 | Pulmonary Consultation ---
History of Present Illness History of Present Illness Date Seen by Provider: Mar 02, 2020 Time Seen by Provider: 04:48 Date of Admission Allergies and Home Medications Allergies Coded Allergies: No Known Drug Allergies (Unverified , 02/12/10) Home Medications Acetaminophen 325 Mg Tablet, 650 MG PO Q6H PRN for PAIN-MILD (1-4), (Reported) Cetirizine HCl 10 Mg Tablet, 10 MG PO DAILY PRN for ALLERGY SYMPTOMS, (Reported) Insulin Aspart 300 Units/3 Ml Solution, 28 UNITS SQ AC, (Reported) LAST FILLED 02-18-2019 #10 PENS Insulin Detemir 100 Unit/1 Ml Insuln.pen, 65 UNITS SQ HS, (Reported) LAST FILLED 02-18-2019 #5 PENS Levothyroxine Sodium 175 Mcg Tablet, 175 MCG PO DAILY, (Reported) Metformin HCl 500 Mg Tablet, 1,000 MG PO BID, (Reported) TAKES 2 (500MG) TABS Naproxen Sodium 220 Mg Capsule, 440 MG PO Q8H PRN for PAIN-MILD (1-4), (Reported) Ondansetron 4 Mg Tab.rapdis, 4 MG PO TID PRN for NAUSEA/VOMITING-1ST LINE, (Reported) Peg 400/Hypromellose/Glycerin 15 Ml Drops, 2 DROPS OU PRN PRN for DRY EYES, (Reported) Rosuvastatin Calcium 20 Mg Tablet, 40 MG PO DAILY, (Reported) TAKES 2 (20MG) TABS Past Htzcxcw-Xscqlz-Acmuuz Hx Past Med/Social Hx: Reviewed Nursing Past Med/Soc Hx, Reviewed and Corrections made Patient Social History Alcohol Use: Denies Use Recreational Drug Use: No Smoking Status: Never a Smoker 2nd Hand Smoke Exposure: No Recent Foreign Travel: No Contact w/Someone Who Travel: No Recent Infectious Disease Expo: No Recent Hopitalizations: No Physical Abuse: No Sexual Abuse: No Mistreated: No Fear: No Immunizations Up To Date Date of Pneumonia Vaccine: September 27, 2019 Seasonal Allergies Seasonal Allergies: No Past Medical History Surgeries: Yes Gallbladder, Hysterectomy Respiratory: No Cardiac: Yes High Cholesterol, Hypertension Neurological: No Genitourinary: No Gastrointestinal: No Musculoskeletal: No Endocrine: Yes Diabetes, Insulin dep, Hypothyroidsim HEENT: No Cancer: No Psychosocial: No Integumentary: No Blood Disorders: No Adverse Reaction/Blood Tranf: No Family Medical History Cardiovascular disease 19 FATHER 19 MOTHER G8 BROTHER Diabetes mellitus 19 FATHER 19 MOTHER G8 BROTHER Hypertension 19 MOTHER G8 BROTHER Respiratory disorder 19 FATHER Thyroid disease 19 MOTHER Review of Systems Time Seen by Provider: 04:48 Sepsis Event Evaluation Height, Weight, BMI Height: '" Weight: lbs. oz. kg; 52.92 BMI Method: Exam Exam Vital Signs Date Time Temp Pulse Resp B/P (MAP) Pulse Ox O2 Delivery O2 Flow Rate FiO2 03/02/20 04:00 79 18 108/71 (83) 97 Vapotherm 30.00 75.00 03/02/20 03:05 77 19 97 Vapotherm 30.00 75.00 03/02/20 03:00 76 17 111/69 (83) 96 Vapotherm 30.00 90.00 03/02/20 02:00 77 19 102/65 (77) 98 Vapotherm 30.00 90.00 03/02/20 01:00 80 03/02/20 01:00 80 19 106/68 (81) 99 Vapotherm 30.00 90.00 03/02/20 00:00 94 Vapotherm 30.00 90 03/02/20 00:00 86 113/70 (84) 98 Vapotherm 30.00 90.00 03/01/20 23:00 93 94/54 (67) 96 Vapotherm 30.00 90.00 03/01/20 22:00 93 96 Vapotherm 30.00 90.00 03/01/20 21:30 92 96 Vapotherm 30.00 90.00 03/01/20 21:00 94 107/66 (80) 97 NIV Bilevel 60.00 03/01/20 20:01 101 104/64 (77) 94 NIV Bilevel 60.00 03/01/20 20:00 97 NIV Bilevel 60 03/01/20 19:30 99 26 95 60.00 03/01/20 19:20 104 98 NIV Bilevel 60.00 03/01/20 19:00 108 108/67 (81) 94 High Flow N/C 8.00 03/01/20 19:00 36.6 03/01/20 19:00 108 03/01/20 18:00 115 119/73 (88) 91 High Flow N/C 8.00 03/01/20 17:00 122 28 146/85 (105) 91 High Flow N/C 8.00 03/01/20 16:30 35.9 03/01/20 16:00 93 Vapotherm 30.00 90 03/01/20 16:00 118 35 147/92 (110) 94 High Flow N/C 8.00 03/01/20 15:00 133 37 163/111 (128) 91 High Flow N/C 8.00 03/01/20 15:00 36.0 03/01/20 14:17 98 High Flow N/C 8.00 03/01/20 14:15 High Flow N/C 8.00 03/01/20 13:00 86 25 96 Vapotherm 25.00 50.00 03/01/20 13:00 86 03/01/20 12:15 97 Vapotherm 25.00 50.00 03/01/20 12:00 35.9 03/01/20 12:00 89 23 109/71 (84) 96 Vapotherm 30.00 60.00 03/01/20 12:00 97 Vapotherm 25.00 60 03/01/20 11:23 96 Vapotherm 30.00 60.00 03/01/20 11:00 89 38 123/83 (96) 97 Vapotherm 30.00 80.00 03/01/20 10:00 91 19 96 Vapotherm 30.00 80.00 03/01/20 09:00 94 105/63 (77) 96 Vapotherm 30.00 80.00 03/01/20 08:00 95 30 108/61 (77) 97 Vapotherm 30.00 80.00 03/01/20 08:00 97 Vapotherm 30.00 80 03/01/20 07:30 35.9 03/01/20 07:00 93 03/01/20 07:00 93 24 104/62 (76) 96 Vapotherm 30.00 80.00 03/01/20 06:00 98 16 105/63 (77) 95 Vapotherm 30.00 80.00 03/01/20 05:00 100 25 101/55 (70) 99 Vapotherm 30.00 80.00 I & O 03/02/20 07:00 Intake Total 1000 ml Output Total 875 ml Balance 125 ml Height & Weight Height: '" Weight: lbs. oz. kg; 52.92 BMI Method: General Appearance: No Apparent Distress, WD/WN, Chronically ill HEENT: PERRL/EOMI, Normal ENT Inspection, Pharynx Normal, Moist Mucous Membranes Neck: Full Range of Motion, Normal Inspection, Non Tender Respiratory: Chest Non Tender, Lungs Clear, Normal Breath Sounds, No Accessory Muscle Use, No Respiratory Distress Cardiovascular: Regular Rate, Rhythm, No Edema, No Gallop, No JVD, No Murmur, Normal Peripheral Pulses Capillary Refill: Less Than 3 Seconds Gastrointestinal: normal bowel sounds, non tender, soft, no pulsatile mass Extremity: Normal Capillary Refill, Normal Inspection, Normal Range of Motion, Non Tender, No Calf Tenderness, No Pedal Edema Neurologic/Psychiatric: Alert, Oriented x3, No Motor/Sensory Deficits, Normal Mood/Affect Skin: Normal Color, Warm/Dry Lymphatic: No Adenopathy Results Lab Laboratory Tests 02/29/20 08:31 03/01/20 07:05 03/02/20 03:26 Assessment/Plan Assessment/Plan Acute respiratory failure -Vapotherm 75% currently -BiPAP PRN -Increase SVNs Q 4 -Add solumedrol Acute renal failure with oliguria and metabolic acidosis -Give liter bolus of LR -Give 2 amps of bicarb -Change IVF to LR at 150 -Monitor close -Check LA DKA -Currently on DKA protocol UTI with sepsis -Change Vanco to Zyvox Hx of LYNDSEY -BiPAP QHS and PRN MISBAH OSMAN DO Mar 02, 2020 04:53
[2020-03-02] MEDS ORDERED: SODIUM BICARB 8.4% 50 MEQ/50 ML VIAL ONE (05:21)
[2020-03-02] MEDS: methylPREDNISolone 40 MG/ML (Solu-MEDROL) VIAL IV SCH ×3 (05:51→18:14)
[2020-03-02] MEDS: LACTATED RINGERS 1,000 ML IV SCH ×3 (05:52→18:28)
[2020-03-02] MEDS: PIPERACILLIN/TAZOBACTAM (BULK) 4.5 GM in NS (IVPB) 100 ML IV SCH (05:53)
[2020-03-02] MEDS: RT-ALBUTEROL INHALER HFA (VENTOLIN HFA) 18 GM IH SCH ×6 (06:01→21:21)
[2020-03-02] MEDS: POTASSIUM CL 10MEQ/50ML IVPB 50 ML IV SCH ×3 (06:03→21:40)
[2020-03-02] MEDS: MAGNESIUM 1 GM/100 ML IVPB 100 ML IV SCH (06:03)
[2020-03-02] MEDS: KCL 20 MEQ TAB (K-DUR) PO SCH (06:04)
[2020-03-02] MEDS: inSUlin ASPART (NovoLOG) 1 UNIT/0.01 ML (CHARGE PER UNIT) SC SCH ×4 (06:04→21:46)
[2020-03-02] MEDS ORDERED: VANCOMYCIN INJECTION 750 MG in NS (IVPB) 250 ML IV SCH (08:00)
--- NOTE | 2020-03-02 08:03 | Diagnostic Imaging Report ---
Indication: DKA. Time of exam: 1:27 AM Correlation is made with prior chest onde day earlier. Heart size is normal. There is central vascular congestion. There appear to be some minimal patchy infiltrates in the upper and lower lung mendoza. No effusion or pneumothorax is detected. Impression: Continued congestive changes with patchy bilateral pulmonary infiltrates. Dictated by: Dictated on workstation # [id number]
--- NOTE | 2020-03-02 08:26 | Diagnostic Imaging Report ---
PROCEDURE: US Venous Lower Ext Fei. TECHNIQUE: Multiple real-time grayscale images were obtained over the lower extremities in various projections, bilaterally. Additional duplex Doppler and color Doppler images were also obtained. INDICATION: Hyperglycemia. There is no evidence of right or left lower extremity DVT. Both lower extremity deep venous systems demonstrate normal compressibility with normal response to augmentation and Valsalva. No fluid collection or mass is detected. IMPRESSION: No evidence of right or left lower extremity DVT. Dictated by: Dictated on workstation # [id number]
[2020-03-02] MEDS ORDERED: LINEZOLID IVPB 300 ML IV SCH (09:00)
[2020-03-02] MEDS: ENOXAPARIN 60 MG/0.6 ML (LOVENOX) SYR SC SCH (09:21)
[2020-03-02] MEDS: SENNA W/DOCUSATE (SENOKOT S) TABLET PO SCH ×2 (09:21→21:45)
--- NOTE | 2020-03-02 10:41 | Progress Note - Hospitalist ---
Subjective HPI/CC On Admission Date Seen by Provider: Mar 02, 2020 Time Seen by Provider: 09:00 CC: Hyperglycemia w/ARF HPI: This is a 54yoWF clinic patient of [facility] who was admitted to [facility] in November 2019 after respiratory compromise with COVID-19 who ultimately went home with O2 to use prn and felt well until Monday when she began chilling and feeling week and feverish. ER assessed her to have N/V and ARF with creat 3.0 so she was admitted to ICU on insulin drip but further w/u for fever and chills revealed elevated PCT and w/u ensued along with repeat COVID swab. Ultimately UTI diagnosed and abx initiated but remains critical on Vapotherm in ICU. Review of Systems General: Fatigue, Malaise Neurological: Weakness Focused Exam Lactate Level 02/29/20 14:43: Lactic Acid Level 1.10 03/02/20 05:40: Lactic Acid Level 0.98 03/02/20 17:00: Lactic Acid Level 1.13 Objective Exam Vital Signs Vital Signs Date Time Temp Pulse Resp B/P (MAP) Pulse Ox O2 Delivery O2 Flow Rate FiO2 03/02/20 21:21 95 Vapotherm 25.00 60 03/02/20 20:00 35.5 03/02/20 18:00 19 156/100 (118) 03/02/20 16:00 79 Capillary Refill : Less Than 3 Seconds General Appearance: No Apparent Distress, WD/WN, Anxious, Chronically ill, Obese Respiratory: Normal Breath Sounds, No Accessory Muscle Use, No Respiratory Distress Cardiovascular: Regular Rate, Rhythm, No Edema Neurologic/Psychiatric: Alert, Oriented x3, No Motor/Sensory Deficits, Normal Mood/Affect, arborist climber II-XII Norm as Tested Results/Procedures Lab Laboratory Tests 03/02/20 03:26 03/02/20 17:00 03/02/20 20:13 Patient resulted labs reviewed. Assessment/Plan Assessment and Plan Assess & Plan/Chief Complaint Assessment: Hyperglycemia requiring insulin drip now changed to SQ insulin Sepsis from UTI placed on abx awaiting Cx results Hypoxia with h/o COVID 15 December 2019 5 days inpatient [facility] now COVID repeat swab negative ARF CRI LYNDSEY on CPAP Hypoxia on O2 at home since COVID-19 prn DM HTN Plan: Abx O2 Monitor closely Insulin drip moved to SQ 03/02/20: Monitor creatinine Continue bicarb drip Updated her brother Diagnosis/Problems Diagnosis/Problems (1) Hyperglycemia Status: Acute (2) UTI (urinary tract infection) (3) Acute kidney injury Status: Acute (4) Flu-like symptoms Status: Acute (5) Hyponatremia Status: Acute (6) Dehydration Status: Acute Clinical Quality Measures DVT/VTE Risk/Contraindication: Risk Factor Score Per Nursin RFS Level Per Nursing on Admit: 3=High IMMANUEL MERINO DO Mar 02, 2020 10:41
[2020-03-02] MEDS: polyethylene glycoL POWDER 17 GM (MIRALAX) PACK PO SCH ×2 (11:40→21:45)
--- NOTE | 2020-03-02 11:55 | NUR ---
notified dr. newell of blood sugar 432. New orders received.
[2020-03-02] MEDS ORDERED: inSUlin ASPART (NovoLOG) 1 UNIT/0.01 ML (CHARGE PER UNIT) SC ONE ×2 (12:00→14:45)
[2020-03-02] MEDS ORDERED: cefTRIAXone 2,000 MG/SWFI 20 ML IV PUSH IV SCH ×2 (13:00)
[2020-03-02 16:58] LABS: BILIRUBIN,URINE NEGATIVE (NEGATIVE); CLARITY,URINE CLOUDY; COLOR,URINE YELLOW; GLUCOSE, URINE (UA) 2+ (NEGATIVE); KETONES,URINE NEGATIVE (NEGATIVE); LEUKOCYTE ESTERASE ,URINE 1+ (NEGATIVE); NITRITE,URINE NEGATIVE (NEGATIVE); PROTEIN,URINE 1+ (NEGATIVE)
[2020-03-02 17:06] LABS: AMORPHOUS SEDIMENT,UR MOD AMOR URATES /LPF; BACTERIA,URINE NEGATIVE /HPF
[2020-03-02 17:07] LABS: BASOPHILS % (AUTO) 0 % (0-10); EOSINOPHILS % (AUTO) 0 % (0-10); HEMATOCRIT 31 % (35-52); HEMOGLOBIN 10.6 g/dL (11.5-16.0); LYMPHOCYTES # (AUTO) 0.6 10^3/uL (1.0-4.0); LYMPHOCYTES % (AUTO) 8 % (12-44); MEAN CORPUSCULAR HEMOGLOBIN 31 pg (25-34); MEAN CORPUSCULAR HGB CONC 34 g/dL (32-36); MEAN CORPUSCULAR VOLUME 90 fL (80-99); MEAN PLATELET VOLUME 10.8 fL (9.0-12.2); MONOCYTES # (AUTO) 0.2 10^3/uL (0.0-1.0); MONOCYTES % (AUTO) 3 % (0-12); NEUTROPHILS # (AUTO) 6.9 10^3/uL (1.8-7.8); NEUTROPHILS % (AUTO) 89 % (42-75); PLATELET COUNT 156 10^3/uL (130-400); WHITE BLOOD COUNT 7.7 10^3/uL (4.3-11.0)
[2020-03-02 17:07] LABS: YEAST,URINE MODERATE /HPF
[2020-03-02 17:19] LABS: ALBUMIN 2.8 GM/DL (3.2-4.5); POTASSIUM 4.6 MMOL/L (3.6-5.0)
[2020-03-02 17:20] LABS: CALCIUM 8.2 MG/DL (8.5-10.1)
[2020-03-02 17:22] LABS: TOTAL PROTEIN 6.4 GM/DL (6.4-8.2)
[2020-03-02 17:23] LABS: BILIRUBIN,TOTAL 0.9 MG/DL (0.1-1.0)
[2020-03-02 17:25] LABS: CREATININE SERUM 4.53 MG/DL (0.60-1.30)
[2020-03-02] MEDS ORDERED: 1/2 NS IV SOLUTION 1,000 ML IV ONE (17:49)
[2020-03-02] MEDS ORDERED: D5 1/2 NS 1000 ML IV SOLUTION 1,000 ML IV SCH (18:00)
[2020-03-02] MEDS: 1/2 NS IV SOLUTION 1,000 ML IV SCH ×3 (18:11→23:19)
[2020-03-02 20:50] LABS: CALCIUM 8.1 MG/DL (8.5-10.1); CREATININE SERUM 4.77 MG/DL (0.60-1.30); POTASSIUM 4.5 MMOL/L (3.6-5.0)
[2020-03-02 23:45] LABS: POTASSIUM 4.3 MMOL/L (3.6-5.0)
[2020-03-02 23:50] LABS: CREATININE SERUM 4.48 MG/DL (0.60-1.30)
[2020-03-03] VITALS (7 sets, daily range): BP systolic 127–153; BP diastolic 85–107
[2020-03-03] MEDS: POTASSIUM CL 10MEQ/50ML IVPB 50 ML IV SCH ×5 (00:05→07:46)
[2020-03-03] MEDS: methylPREDNISolone 40 MG/ML (Solu-MEDROL) VIAL IV SCH ×2 (00:22→05:12)
[2020-03-03] MEDS: RT-ALBUTEROL INHALER HFA (VENTOLIN HFA) 18 GM IH SCH ×3 (01:53→13:01)
[2020-03-03] MEDS: LACTATED RINGERS 1,000 ML IV SCH (02:57)
[2020-03-03] MEDS: NS IV 1000 ML 1,000 ML IV SCH ×3 (02:57→05:12)
--- NOTE | 2020-03-03 04:01 | Consultation ---
HPI History of Present Illness: HPI/Chief Complaint CC: Hyperglycemia w/ARF HPI: This is a 54yoWF clinic patient of [facility] who was admitted to [facility] in November 2019 after respiratory compromise with COVID-19 who ultimately went home with O2 to use prn and felt well until Monday when she began chilling and feeling week and feverish. ER assessed her to have N/V and ARF with creat 3.0 so she was admitted to ICU on insulin drip but further w/u for fever and chills revealed elevated PCT and w/u ensued along with repeat COVID swab. Ultimately UTI diagnosed and a bx initiated but remains critical on Vapotherm in ICU. Pt admits to symptom improvement from yesterday Source: patient Exam Limitations: no limitations Date Seen 03/03/20 Attending Physician Sissy Snyder DO [facility] Referring Physician Date of Admission Feb 28, 2020 at 20:28 Home Medications & Allergies Home Medications Reviewed patient Home Medication Reconciliation performed by pharmacy medication reconciliations hardware technician and/or nursing. Patients Allergies have been reviewed. Allergies Allergies Coded Allergies No Known Drug Allergies (Unverified02/12/10) Past Tsnyyvb-Vurlht-Kmuvjw Hx Past Med/Social Hx: Reviewed Nursing Past Med/Soc Hx, Reviewed and Corrections made Patient Social History Marrital Status: single Employed/Student: employed Alcohol Use: Denies Use Recreational Drug Use: No Smoking Status: Never a Smoker 2nd Hand Smoke Exposure: No Recent Foreign Travel: No Contact w/other who traveled: No Recent Hopitalizations: No Recent Infectious Disease Expo: No Immunizations Up To Date Date of Pneumonia Vaccine: September 27, 2019 Seasonal Allergies Seasonal Allergies: No Past Medical History Surgeries: Gallbladder, Hysterectomy Respiratory: Pneumonia, Sleep Apnea COVID November 2019 Cardiac: High Cholesterol, Hypertension Endocrine: Diabetes, Insulin dep, Hypothyroidsim History of Blood Disorders: No Adverse Reaction to Blood [place]: No Family History Cardiovascular disease 19 FATHER 19 MOTHER G8 BROTHER Diabetes mellitus 19 FATHER 19 MOTHER G8 BROTHER Hypertension 19 MOTHER G8 BROTHER Respiratory disorder 19 FATHER Thyroid disease 19 MOTHER Review of Systems Constitutional: chills (denies) EENTM: see HPI Gastrointestinal: nausea (denies), vomiting (denies) Physical Exam Physical Exam Vital Signs Vital Signs - First Documented 02/28/20 02/28/20 19:14 23:53 Temp 37.3 Pulse 116 Resp 18 B/P (MAP) 139/88 (105) Pulse Ox 95 O2 Delivery Room Air O2 Flow Rate 2.00 FiO2 2 Capillary Refill : Less Than 3 Seconds Height, Weight, BMI Height: '" Weight: lbs. oz. kg; 52.92 BMI Method: General Appearance: No Apparent Distress, WD/WN, Anxious, Chronically ill, Obese Eyes: Bilateral Eye EOMI HEENT: PERRL/EOMI Respiratory: Chest Non Tender, Normal Breath Sounds, No Accessory Muscle Use, No Respiratory Distress Cardiovascular: Regular Rate, Rhythm, No Edema Gastrointestinal: No Pulsatile Mass, Non Tender, Soft Extremity: Normal Capillary Refill, Normal Inspection, Non Tender, No Calf Tenderness, Pedal Edema (present to just below the knees) Neurologic/Psychiatric: Alert, Oriented x3, No Motor/Sensory Deficits, Normal Mood/Affect, Other (admits to constant tingling in LE, but maintains consistent visits for diabetic neuropathy) Skin: Normal Color, Warm/Dry Lymphatic: No Adenopathy Results Results/Procedures Labs Laboratory Tests 03/01/20 07:05 03/02/20 03:26 03/02/20 17:00 03/02/20 20:13 03/02/20 23:30 03/03/20 03:49 Patient resulted labs reviewed. Assessment/Plan Assessment and Plan Assess & Plan/Chief Complaint Acute respiratory failure -Vapotherm 75% currently -Pt currently on nasal canula - BiPAP PRN -Increase SVNs Q 6 -Add solumedrol Acute renal failure with oliguria and metabolic acidosis, with hyponatremia and hypocalcemia -change IVF to NS, decrease rate d/t fluid overload -administer HCTZ, monitor closely d/t oliguria -Monitor closely -Check LA UTI with sepsis -Change Vanco to Zyvox Hx of LYNDSEY -BiPAP QHS and PRN DM -Long acting insulin -SSI -Monitor Family contact -update pt and family on pt status Clinical Quality Measures DVT/VTE Risk/Contraindication: Risk Factor Score Per Nursin RFS Level Per Nursing on Admit: 3=High Supervisory-Addendum Brief Verification & Attestation Participated in pt care: history, physical Personally performed: history Care discussed with: Medical Student Procedures: n/a Please disregard this note, as I do not have the authority to delete my own notes KAY OROSCO MED STUDENT Mar 03, 2020 04:00
[2020-03-03 04:06] LABS: BASOPHILS % (AUTO) 0 % (0-10); EOSINOPHILS % (AUTO) 0 % (0-10); HEMATOCRIT 30 % (35-52); HEMOGLOBIN 10.3 g/dL (11.5-16.0); LYMPHOCYTES # (AUTO) 0.9 10^3/uL (1.0-4.0); LYMPHOCYTES % (AUTO) 9 % (12-44); MEAN CORPUSCULAR HEMOGLOBIN 31 pg (25-34); MEAN CORPUSCULAR HGB CONC 34 g/dL (32-36); MEAN CORPUSCULAR VOLUME 89 fL (80-99); MEAN PLATELET VOLUME 10.4 fL (9.0-12.2); MONOCYTES # (AUTO) 0.3 10^3/uL (0.0-1.0); MONOCYTES % (AUTO) 3 % (0-12); NEUTROPHILS # (AUTO) 8.6 10^3/uL (1.8-7.8); NEUTROPHILS % (AUTO) 87 % (42-75); PLATELET COUNT 162 10^3/uL (130-400); WHITE BLOOD COUNT 9.9 10^3/uL (4.3-11.0)
[2020-03-03 04:15] LABS: POTASSIUM 4.5 MMOL/L (3.6-5.0)
[2020-03-03 04:20] LABS: CREATININE SERUM 4.41 MG/DL (0.60-1.30); PHOSPHORUS 4.5 MG/DL (2.3-4.7)
[2020-03-03 04:23] LABS: MAGNESIUM 1.7 MG/DL (1.6-2.4)
[2020-03-03] MEDS: 1/2 NS IV SOLUTION 1,000 ML IV SCH (05:12)
[2020-03-03] MEDS: MAGNESIUM 1 GM/100 ML IVPB 100 ML IV SCH (05:13)
[2020-03-03] MEDS: KCL 20 MEQ TAB (K-DUR) PO SCH (05:13)
[2020-03-03] MEDS: inSUlin ASPART (NovoLOG) 1 UNIT/0.01 ML (CHARGE PER UNIT) SC SCH (05:13)
--- NOTE | 2020-03-03 05:52 | Pulmonary Progress Note ---
Subjective Time Seen by a Provider: 05:44 Subjective/Events-last exam Pt is requiring Vapotherm. Sepsis Event Evaluation Height, Weight, BMI Height: '" Weight: lbs. oz. kg; 52.92 BMI Method: Focused Exam Lactate Level 02/29/20 14:43: Lactic Acid Level 1.10 03/02/20 05:40: Lactic Acid Level 0.98 03/02/20 17:00: Lactic Acid Level 1.13 Exam Exam Vital Signs Date Time Temp Pulse Resp B/P (MAP) Pulse Ox O2 Delivery O2 Flow Rate FiO2 03/03/20 04:00 72 26 145/92 (109) 94 Vapotherm 20.00 50.00 03/03/20 04:00 94 Vapotherm 25.00 50 03/03/20 04:00 35.6 03/03/20 02:59 73 20 128/92 (104) 95 Vapotherm 20.00 50.00 03/03/20 02:00 69 19 93 Vapotherm 20.00 50.00 03/03/20 01:53 94 Vapotherm 20.00 50 03/03/20 01:39 68 16 95 Vapotherm 20.00 50.00 03/03/20 01:00 69 21 96 Vapotherm 25.00 50.00 03/03/20 01:00 69 03/03/20 00:34 36.0 03/03/20 00:26 73 12 127/107 (114) 94 Vapotherm 25.00 50.00 03/03/20 00:00 94 Vapotherm 25.00 50 03/02/20 23:00 76 27 131/95 (107) 95 Vapotherm 25.00 50.00 03/02/20 22:30 78 11 161/98 (119) 100 Vapotherm 25.00 50.00 03/02/20 21:21 95 Vapotherm 25.00 60 03/02/20 21:00 77 30 168/116 (133) 95 Vapotherm 25.00 50.00 03/02/20 20:34 74 03/02/20 20:30 78 153/84 (107) 92 Vapotherm 25.00 50.00 03/02/20 20:00 35.5 03/02/20 20:00 94 Vapotherm 25.00 50 03/02/20 19:00 74 31 123/90 (101) 93 Vapotherm 25.00 50.00 03/02/20 18:13 93 Vapotherm 25.00 60 03/02/20 18:00 19 156/100 (118) 94 Vapotherm 30.00 75.00 03/02/20 16:00 79 21 153/89 (110) 96 Vapotherm 30.00 75.00 03/02/20 16:00 94 Vapotherm 30.00 90 03/02/20 15:12 93 Vapotherm 25.00 60 03/02/20 15:12 36.8 03/02/20 15:00 77 24 149/93 (111) 94 Vapotherm 30.00 75.00 03/02/20 14:00 77 33 154/92 (112) 94 Vapotherm 30.00 75.00 03/02/20 13:00 80 23 146/92 (110) 91 Vapotherm 30.00 75.00 03/02/20 12:40 82 03/02/20 12:00 84 35 95 Vapotherm 30.00 75.00 03/02/20 12:00 94 Vapotherm 30.00 90 03/02/20 11:36 35.6 03/02/20 11:00 86 19 90 Vapotherm 30.00 75.00 03/02/20 10:00 81 45 120/77 (91) 89 Vapotherm 30.00 75.00 03/02/20 09:00 82 15 108/71 (83) 91 Vapotherm 30.00 75.00 03/02/20 08:29 37.3 03/02/20 08:00 88 25 127/81 (96) 88 Vapotherm 30.00 75.00 03/02/20 08:00 94 Vapotherm 30.00 90 03/02/20 07:00 85 27 121/76 (91) 93 Vapotherm 30.00 75.00 03/02/20 07:00 91 Vapotherm 20.00 60 03/02/20 06:44 83 03/02/20 06:00 80 22 119/73 (88) 94 Vapotherm 30.00 75.00 I & O 03/03/20 07:00 Intake Total 3135 ml Output Total 1525 ml Balance 1610 ml Height & Weight Height: '" Weight: lbs. oz. kg; 52.92 BMI Method: General Appearance: No Apparent Distress, WD/WN, Anxious, Chronically ill, Obese HEENT: PERRL/EOMI Respiratory: Chest Non Tender, Normal Breath Sounds, No Accessory Muscle Use, No Respiratory Distress Cardiovascular: Regular Rate, Rhythm, No Edema Capillary Refill: Less Than 3 Seconds Gastrointestinal: normal bowel sounds, non tender, soft, no pulsatile mass Extremity: Normal Capillary Refill, Normal Inspection, Non Tender, No Calf Tenderness, Pedal Edema (present to just below the knees) Neurologic/Psychiatric: Alert, Oriented x3, No Motor/Sensory Deficits, Normal Mood/Affect, Other (admits to constant tingling in LE, but maintains consistent visits for diabetic neuropathy) Skin: Normal Color, Warm/Dry Lymphatic: No Adenopathy Results Lab Laboratory Tests 03/01/20 07:05 03/02/20 03:26 03/02/20 17:00 03/02/20 20:13 03/02/20 23:30 03/03/20 03:49 Assessment/Plan Assessment/Plan Acute respiratory failure -Date of admission 02/27 -Vapotherm 50% currently -BiPAP PRN -Increase SVNs Q 4 -solumedrol 40mg IV BID -COVID is negative Acute DKA -Continue DKA protocol Hyponatremia -Continue NS and monitor Acute renal failure with oliguria and metabolic acidosis -Give liter bolus of LR -NS currently at 250 per DKA protocol -Monitor close -Check [place] -Will attempt to transfer to [place] secondary to persistent renal failure. UTI with sepsis secondary to Klebsiella -Continue Rocephin Bacteremia with Klebsiella -Continue Rocephin Hx of LYNDSEY -BiPAP QHS and PRN DM -Long acting insulin -SSI -Monitor MISBAH OSMAN DO Mar 03, 2020 05:52
[2020-03-03] MEDS ORDERED: TROUGH ORDER-PHARMACY XX NR (07:00)
[2020-03-03] MEDS: polyethylene glycoL POWDER 17 GM (MIRALAX) PACK PO SCH (07:37)
[2020-03-03] MEDS: SENNA W/DOCUSATE (SENOKOT S) TABLET PO SCH (07:45)
--- NOTE | 2020-03-03 07:46 | Diagnostic Imaging Report ---
INDICATION: Diabetic ketoacidosis. TECHNIQUE: Single view chest 2:57 AM. CORRELATION STUDY: 03/02/2020 FINDINGS: Heart size enlarged, mediastinum prominent, generally stable. Vasculature remains mildly prominent. Continued bilateral pulmonary opacities are present overall slightly increased particularly in the right upper lung. IMPRESSION: 1. Findings of congestive failure. Scattered bilateral pulmonary parenchymal disease could be reflective of edema versus infiltrate persisting overall slightly increased particularly in the right upper lobe distribution. Dictated by: Dictated on workstation # [id number]
[2020-03-03] MEDS ORDERED: D5 LR IV SOLUTION 1,000 ML IV SCH (08:00)
[2020-03-03 08:16] LABS: POTASSIUM 4.6 MMOL/L (3.6-5.0)
[2020-03-03 08:30] LABS: CALCIUM 8.2 MG/DL (8.5-10.1)
[2020-03-03 08:34] LABS: CREATININE SERUM 4.3 MG/DL (0.60-1.30)
[2020-03-03] MEDS ORDERED: ENOXAPARIN 30 MG/0.3 ML (LOVENOX) SYR SC SCH (09:00)
--- NOTE | 2020-03-03 09:14 | Discharge Summary ---
Discharge Summary Hospital Course Was the Problem List Reviewed?: Yes Problems/Dx: (1) Hyperglycemia Status: Acute (2) UTI (urinary tract infection) (3) Acute kidney injury Status: Acute (4) Flu-like symptoms Status: Acute (5) Hyponatremia Status: Acute (6) Dehydration Status: Acute Hospital Course Date of Admission: Feb 28, 2020 at 20:28 Admission Diagnosis : Family Physician/Provider: Celine Castro Aprn Date of Discharge: 03/03/20 Discharge Diagnosis: Assessment: Hyperglycemia requiring insulin drip now changed to SQ insulin Sepsis from UTI placed on abx awaiting Cx results Hypoxia with h/o COVID 15 December 2019 5 days inpatient [facility] now COVID repeat swab negative ARF CRI LYNDSEY on CPAP Hypoxia on O2 at home since COVID-19 prn DM HTN Plan: Abx O2 Monitor closely Insulin drip moved to SQ 03/02/20: Monitor creatinine Continue bicarb drip Updated her brother Hospital Course: Hospital course: Pt had a lengthy hospital course for five days after she was admitted for hyperglycemia, placed on insulin drip but she began having SOB and hypoxia, placed on Vapotherm and another Covid swab initiated. Hypotension ultimately resolved with protocol fluids. Antibiotics were initiated after urinalysis showed too numerous to count WBCs, and blood culture showed gram negative rods. She was placed on Zosyn and Vanc empirically. Her creatinine had become compromised above her baseline of 1.8 from diabetic nephropathy and she became more and more acidotic with bicarbonate of 12, even insulin drip initiated, she was found to have uremia with acidosis, requiring transfer to nephrology. All 16 hospitals around the area and other states were on diversion but [facility] in [place] was found and accepted the Pt and she will be transferred there for aggressive treatment while maintained on Vapotherm. Labs and Pending Lab Test: Laboratory Tests 03/02/20 11:37: Glucometer 432*H 03/02/20 14:27: Glucometer 456*H 03/02/20 16:02: Glucometer 439*H 03/02/20 16:30: Urine Color YELLOW, Urine Clarity CLOUDY, Urine pH 5.0, Urine Specific [place] 1.010L, Urine Protein 1+H, Urine Glucose (UA) 2+H, Urine Ketones NEGATIVE, Urine Nitrite NEGATIVE, Urine Bilirubin NEGATIVE, Urine Urobilinogen 1.0, Urine Leukocyte Esterase 1+H, Urine RBC (Auto) 2+H, Urine RBC 2-5H, Urine WBC 5-10H, Urine Squamous Epithelial Cells 5-10, Urine Crystals NONE, Urine Amorphous Sediment MOD GISSELLE URATESH, Urine Bacteria NEGATIVE, Urine Casts NONE, Urine Mucus NEGATIVE, Urine Yeast MODERATEH, Urine Culture Indicated YES 03/02/20 17:00: White Blood Count 7.7, Red Blood Count 3.48L, Hemoglobin 10.6L, Hematocrit 31L, Mean Corpuscular Volume 90, Mean Corpuscular Hemoglobin 31, Mean Corpuscular Hemoglobin Concent 34, Red Cell Distribution Width 13.1, Platelet Count 156, Mean Platelet Volume 10.8, Immature Granulocyte % (Auto) 1, Neutrophils (%) (Auto) 89H, Lymphocytes (%) (Auto) 8L, Monocytes (%) (Auto) 3, Eosinophils (%) (Auto) 0, Basophils (%) (Auto) 0, Neutrophils # (Auto) 6.9, Lymphocytes # (Auto) 0.6L, Monocytes # (Auto) 0.2, Eosinophils # (Auto) 0.0, Basophils # (Auto) 0.0, Immature Granulocyte # (Auto) 0.1, Sodium Level 125*L, Potassium Level 4.6, Chloride Level 95L, Carbon Dioxide Level 15L, Anion Gap 15H, Blood Urea Nitrogen 62H, Creatinine 4.53H, Estimat Glomerular Filtration Rate 10, BUN/Creatinine Ratio 14, Glucose Level 444*H, Lactic Acid Level 1.13, Calcium Level 8.2L, Corrected Calcium 9.2, Total Bilirubin 0.9, Aspartate Amino Transf (AST/SGOT) 24, Alanine Aminotransferase (ALT/SGPT) 42, Alkaline Phosphatase 247H, Total Protein 6.4, Albumin 2.8L, Beta-Hydroxybutyrate (Chem panel) 0.38H 03/02/20 18:58: Glucometer 387H 03/02/20 20:03: Glucometer 347H 03/02/20 20:13: Sodium Level 126L, Potassium Level 4.5, Chloride Level 97L, Carbon Dioxide Level 12L, Anion Gap 17H, Blood Urea Nitrogen 66H, Creatinine 4.77H, Estimat Glomerular Filtration Rate 10, BUN/Creatinine Ratio 14, Glucose Level 371H, Calcium Level 8.1L 03/02/20 21:06: Glucometer 343H 03/02/20 22:44: Glucometer 327H 03/02/20 23:30: Sodium Level 123*L, Potassium Level 4.3, Chloride Level 97L, Carbon Dioxide Level 13L, Anion Gap 13, Blood Urea Nitrogen 64H, Creatinine 4.48H, Estimat Glomerular Filtration Rate 10, BUN/Creatinine Ratio 14, Glucose Level 335H, Calcium Level 8.0L 03/03/20 00:31: Glucometer 299H 03/03/20 01:36: Glucometer 311H 03/03/20 02:53: Glucometer 293H 03/03/20 03:49: White Blood Count 9.9, Red Blood Count 3.38L, Hemoglobin 10.3L, Hematocrit 30L, Mean Corpuscular Volume 89, Mean Corpuscular Hemoglobin 31, Mean Corpuscular Hemoglobin Concent 34, Red Cell Distribution Width 12.6, Platelet Count 162, Mean Platelet Volume 10.4, Immature Granulocyte % (Auto) 1, Neutrophils (%) (Auto) 87H, Lymphocytes (%) (Auto) 9L, Monocytes (%) (Auto) 3, Eosinophils (%) (Auto) 0, Basophils (%) (Auto) 0, Neutrophils # (Auto) 8.6H, Lymphocytes # (Auto) 0.9L, Monocytes # (Auto) 0.3, Eosinophils # (Auto) 0.0, Basophils # (Auto) 0.0, Immature Granulocyte # (Auto) 0.1, Sodium Level 126L, Potassium Level 4.5, Chloride Level 100, Carbon Dioxide Level 13L, Anion Gap 13, Blood Urea Nitrogen 65H, Creatinine 4.41H, Estimat Glomerular Filtration Rate 10, BUN/Creatinine Ratio 15, Glucose Level 266H, Calcium Level 8.0L, Phosphorus Level 4.5, Magnesium Level 1.7, Beta-Hydroxybutyrate (Chem panel) 0.08 03/03/20 04:17: Glucometer 285H 03/03/20 05:16: Glucometer 231H 03/03/20 06:20: Glucometer 253H 03/03/20 07:35: Glucometer 218H 03/03/20 08:00: Sodium Level 126L, Potassium Level 4.6, Chloride Level 100, Carbon Dioxide Level 12L, Anion Gap 14, Blood Urea Nitrogen 67H, Creatinine 4.30H, Estimat Glomerular Filtration Rate 11, BUN/Creatinine Ratio 16, Glucose Level 229H, Calcium Level 8.2L 03/03/20 08:40: Glucometer 223H Microbiology 02/29/20 Urine Culture - Final, Complete Klebsiella pneumoniae 02/29/20 Blood Culture - Preliminary, Resulted Klebsiella pneumoniae See Comments 02/29/20 MRSA Screen - Final, Complete MRSA not isolated Home Meds Active Reported Aleve (Naproxen Sodium) 220 Mg Capsule 440 Mg PO Q8H PRN Tylenol (Acetaminophen) 325 Mg Tablet 650 Mg PO Q6H PRN Visine Dry Eye Relief Drop (Peg 400/Hypromellose/Glycerin) 15 Ml Drops 2 Drops OU PRN PRN Zyrtec (Cetirizine HCl) 10 Mg Tablet 10 Mg PO DAILY PRN Ondansetron Odt (Ondansetron) 4 Mg Tab.rapdis 4 Mg PO TID PRN Metformin HCl 500 Mg Tablet 1,000 Mg PO BID TAKES 2 (500MG) TABS Novolog Flexpen (Insulin Aspart) 300 Units/3 Ml Solution 28 Units SQ AC LAST FILLED 02-18-2019 #10 PENS Levemir Flextouch (Insulin Detemir) 100 Unit/1 Ml Insuln.pen 65 Units SQ HS LAST FILLED 02-18-2019 #5 PENS Levothyroxine Sodium 175 Mcg Tablet 175 Mcg PO DAILY Rosuvastatin Calcium 20 Mg Tablet 40 Mg PO DAILY TAKES 2 (20MG) TABS Assessment/Pt Instructions Transfer to higher level Discharge Planning: <30 minutes discharge planning Discharge Instructions Discharge Diet: No Restrictions Activity as Tolerated: Yes Discharge Physical Examination Vital Signs Vital Signs Date Time Temp Pulse Resp B/P (MAP) Pulse Ox O2 Delivery O2 Flow Rate FiO2 03/03/20 07:40 35.8 03/03/20 07:05 93 Vapotherm 20.00 45 03/03/20 07:00 74 22 153/94 (113) General Appearance: No Apparent Distress, WD/WN, Chronically ill Respiratory: Normal Breath Sounds, Decreased Breath Sounds Cardiovascular: Regular Rate, Rhythm Neurologic/Psychiatric: Alert, Oriented x3 Allergies: Coded Allergies: No Known Drug Allergies (Unverified , 02/12/10) Discharge Summary Date of Admission Feb 28, 2020 at 20:28 Date of Discharge Admission Diagnosis Assessment: Hyperglycemia requiring insulin drip Sepsis from UTI Hypoxia with h/o COVID 15 December 2019 5 days inpatient [facility] ARF CRI LYNDSEY on CPAP Hypoxia on O2 at home since COVID-19 prn DM HTN Plan: Abx O2 Monitor closely Insulin drip Discharge Diagnosis Assessment: Hyperglycemia requiring insulin drip now changed to SQ insulin Sepsis from UTI placed on abx awaiting Cx results Hypoxia with h/o COVID 15 December 2019 5 days inpatient [facility] now COVID repeat swab negative ARF CRI LYNDSEY on CPAP Hypoxia on O2 at home since COVID-19 prn DM HTN Plan: Abx O2 Monitor closely Insulin drip moved to SQ 03/02/20: Monitor creatinine Continue bicarb drip Updated her brother (1) Hyperglycemia Status: Acute (2) UTI (urinary tract infection) (3) Acute kidney injury Status: Acute (4) Flu-like symptoms Status: Acute (5) Hyponatremia Status: Acute (6) Dehydration Status: Acute Clinical Quality Measures DVT/VTE Risk/Contraindication: Risk Factor Score Per Nursin RFS Level Per Nursing on Admit: 3=High IMMANUEL MERINO DO Mar 03, 2020 09:14
--- NOTE | 2020-03-03 11:12 | Physician Query Clarification ---
PQ-Further Specificity Admission/Discharge Admission Date: Feb 28, 2020 at 20:28 Discharge Date: Dr. Snyder, The medical record reflects the following clinical scenario: History/Risk Factors: Sepsis Acute Renal Failure Pyelonephritis Clinical Findings:T 35.6, Resp 26, BP 145/92, Lactic acid 0.20 to 2.14, eGFR 16, Creatinine 3.06, BUN 50. Treatment:IV Vancomycin to Zyvox, liter bolus of lactated ringers, 2 amps of bicarb. Question: Can you further specify sepsis per the clinical indicators above? Please document a response in the Progress Notes or Discharge Summary. 1. Sepsis with severe sepsis. 2. Sepsis, (no severe sepsis). 3. Other, with explanation of the clinical findings. 4. Clinically undetermined, no explanation for the clinical findings. PHYSICIAN RESPONSE Can you specify per above: 1 Please remember a lack of response to the above will prompt a phone page by CDI/Coding staff. In responding to this query, please exercise your independent professional judgment. The purpose of this communication is to more accurately reflect the complexity of your patients condition. The fact that a question is asked does not imply that any particular answer is desired or expected. Thank you for your timely response to this clarification. Requestors name: [ ] Phone # [ ] THIS PHYSICIAN QUERY FORM IS A PERMANENT PART OF THE MEDICAL RECORD LIZZETH SOARES Mar 03, 2020 11:12 IMMANUEL SNYDER DO Mar 03, 2020 14:51
--- NOTE | 2020-03-03 13:03 | NUR ---
PATIENT TRANSFERRED TO [facility] BY [facility]. PATIENT SENT WITH PERSONAL BELONGINGS. REPORT GIVEN TO EMS AT BEDSIDE. COPY OF PATIENT CHART, RADIOLOGY DISC, SENT WITH EMS FOR HOSPITAL USE. REPORT CALLED TO GREG LAURENT, WITH [facility]. PATIENT FAMILY UPDATED ON PATIENT TRANSFERS ET ROOM NUMBER.
[2020-03-03] MEDS ORDERED: methylPREDNISolone 40 MG/ML (Solu-MEDROL) VIAL IV SCH (18:00)
== END 2020-03-03 13:12 | disposition designated cancer center or children's hospital (05) | DRG 871 ==
LOC: EDUNIT# 18:08 → ER FS 18:10 → ICU 20:28
PROVIDERS: ADMIT Internal Medicine; ATTEND Internal Medicine
DX: A41.50 Gram-negative sepsis, unspecified (principal); E11.00 Type 2 diabetes mellitus with hyperosmolarity without nonketotic hyperglycemic-hyperosmolar coma (NKHHC); J96.00 Acute respiratory failure, unspecified whether with hypoxia or hypercapnia; N12 Tubulo-interstitial nephritis, not specified as acute or chronic; N17.9 Acute kidney failure, unspecified; E87.2 Acidosis; Z68.43 Body mass index [BMI] 50.0-59.9, adult; E87.1 Hypo-osmolality and hyponatremia; N39.0 Urinary tract infection, site not specified; E11.65 Type 2 diabetes mellitus with hyperglycemia; G47.33 Obstructive sleep apnea (adult) (pediatric); E66.9 Obesity, unspecified; E78.00 Pure hypercholesterolemia, unspecified; I10 Essential (primary) hypertension; E03.9 Hypothyroidism, unspecified; R53.1 Weakness; Z20.828 Contact with and (suspected) exposure to other viral communicable diseases; Z79.4 Long term (current) use of insulin; Z86.19 Personal history of other infectious and parasitic diseases; Z87.01 Personal history of pneumonia (recurrent)
CPT/HCPCS: 36415; 71045; 74176; 80048; 80053; 81000; 81002; 82010; 82550; 82805; 82962; 83605; 83735; 83880; 84100; 84145; 85007; 85025; 85027; 85379; 87040; 87077; 87081; 87088; 87186; 87635; 93306; 93970; 94640; 94660; 94664; 96361; 96374; 96375

== ENCOUNTER 2020-04-07 16:30 | Emergency (ER) | payer BC ==
[~2020-04-07] VITALS: Ht 160 cm; Wt 136.3 kg
[2020-04-07] MEDS ORDERED: NS IV 500 ML 500 ML IV STA (16:41)
--- NOTE | 2020-04-07 16:44 | ED General ---
General Stated Complaint: FEVER,UTI SYMPTOMS Source of Information: Patient, Old Records, RN/MD, RN Notes Reviewed History of Present Illness Date Seen by Provider: Apr 07, 2020 Time Seen by Provider: 16:35 Initial Comments This patient is a 54-year-old female presents to the emerge department concerning for fever and urinary tract infection. Patient recently had a diagnosis of pyelonephritis in February and had be admitted to the hospital for about a week due to sepsis. Patient never really had urinary tract infections prior to that. Patient was diagnosed with urinary tract infection yesterday received 1 g Rocephin IM and was placed on Cipro via her PCPs office. Patient states she's red intermittent fever all night. Patient presents back to the emergency department for an evaluation because she does not want to be put back in the hospital due to bad urinary tract infections. Patient did have 2 doses of her Cipro thus far. We'll do medical evaluation treatment is needed Timing/Duration: 1-2 Days Severity: Moderate Associated Systoms: Denies Symptoms, Fever/Chills Allergies and Home Medications Allergies Coded Allergies: No Known Drug Allergies (Unverified , 02/12/10) Home Medications Acetaminophen 325 Mg Tablet, 650 MG PO Q6H PRN for PAIN-MILD (1-4), (Reported) Cetirizine HCl 10 Mg Tablet, 10 MG PO DAILY PRN for ALLERGY SYMPTOMS, (Reported) Insulin Aspart 300 Units/3 Ml Solution, 28 UNITS SQ AC, (Reported) LAST FILLED 02-18-2019 #10 PENS Insulin Detemir 100 Unit/1 Ml Insuln.pen, 65 UNITS SQ HS, (Reported) LAST FILLED 02-18-2019 #5 PENS Levothyroxine Sodium 175 Mcg Tablet, 175 MCG PO DAILY, (Reported) Metformin HCl 500 Mg Tablet, 1,000 MG PO BID, (Reported) TAKES 2 (500MG) TABS Naproxen Sodium 220 Mg Capsule, 440 MG PO Q8H PRN for PAIN-MILD (1-4), (Reported) Ondansetron 4 Mg Tab.rapdis, 4 MG PO TID PRN for NAUSEA/VOMITING-1ST LINE, (Reported) Peg 400/Hypromellose/Glycerin 15 Ml Drops, 2 DROPS OU PRN PRN for DRY EYES, (Reported) Rosuvastatin Calcium 20 Mg Tablet, 40 MG PO DAILY, (Reported) TAKES 2 (20MG) TABS Patient Home Medication List Home Medication List Reviewed: Yes Review of Systems Review of Systems Constitutional: No no symptoms reported, No see HPI, No chills, No diaphoresis, No dizziness; fever; No malaise, No weakness, No weight gain, No weight loss, No other EENTM: No see HPI, No no symptoms reported, No ear discharge, No hearing loss, No ear pain, No blurred vision, No double vision, No eye pain, No tearing, No vision loss, No dental problems, No hoarseness, No mouth pain, No mouth swelling, No epistaxis, No nose congestion, No nose pain, No throat pain, No throat swelling, No other Respiratory: No no symptoms reported, No see HPI, No cough, No dyspnea on exertion, No hemoptysis, No orthopnea, No phlegm, No short of breath, No stridor, No wheezing, No other Cardiovascular: No no symptoms reported, No see HPI, No chest pain, No edema, No Hx of Intervention, No palpitations, No syncope, No vascular heart diseas, No other Gastrointestinal: No RUQ, No LUQ, No RLQ, No LLQ, No no symptoms reported, No see HPI, No abdominal pain, No constipation, No diarrhea, No dysphagia, No hematemesis, No heartburn, No jaundice, No loss of appetite, No melena, No nausea, No vomiting, No other Genitourinary: No no symptoms reported; see HPI; No decreased output, No discharge, No dysuria; frequency; No hematuria, No hesitancy, No incontinence, No nocturia, No pain, No other Musculoskeletal: No no symptoms reported, No see HPI, No back pain, No gout, No joint pain, No joint swelling, No muscle pain, No muscle stiffness, No muscle cramps, No muscle twitching, No muscle weakness, No neck pain, No other Skin: No no symptoms reported, No see HPI, No change in color, No change in hair/nails, No dryness, No hx of skin cancer, No lesions, No lumps, No pruritus, No rash, No other All Other Systems Reviewed Negative Unless Noted: Yes Past [id number]-[id number]-[id number] Hx Patient Social History 2nd Hand Smoke Exposure: No Recent Hopitalizations: No Immunizations Up To Date Date of Pneumonia Vaccine: September 27, 2019 Seasonal Allergies Seasonal Allergies: No Past Medical History Surgeries: Yes Gallbladder, Hysterectomy Respiratory: No Cardiac: Yes High Cholesterol, Hypertension Neurological: No Genitourinary: No Gastrointestinal: No Musculoskeletal: No Endocrine: Yes Diabetes, Insulin dep, Hypothyroidsim HEENT: No Cancer: No Psychosocial: No Integumentary: No Blood Disorders: No Adverse Reaction/Blood Tranf: No Family Medical History Cardiovascular disease 19 FATHER 19 MOTHER G8 BROTHER Diabetes mellitus 19 FATHER 19 MOTHER G8 BROTHER Hypertension 19 MOTHER G8 BROTHER Respiratory disorder 19 FATHER Thyroid disease 19 MOTHER Physical Exam Vital Signs Capillary Refill : Height, Weight, BMI Height: '" Weight: lbs. oz. kg; 52.92 BMI Method: General Appearance: No Apparent Distress, WD/WN Respiratory: Chest Non Tender, Lungs Clear, Normal Breath Sounds, No Accessory Muscle Use, No Respiratory Distress Cardiovascular: Regular Rate, Rhythm, No Edema, No Gallop, No JVD, No Murmur, Normal Peripheral Pulses Gastrointestinal: Normal Bowel Sounds, No Organomegaly, No Pulsatile Mass, Non Tender, Soft Back: Normal Inspection, No CVA Tenderness, No Vertebral Tenderness Skin: Normal Color, Warm/Dry Focused Exam Lactate Level 04/07/20 16:55: Lactic Acid Level 1.20 Lactic Acid Level Laboratory Tests Test 04/07/20 16:55 Lactic Acid Level 1.20 MMOL/L (0.50-2.00) Progress/Results/Core Measures Suspected Sepsis SIRS Temperature: Pulse: Respiratory Rate: Laboratory Tests 04/07/20 16:55: White Blood Count 14.8H Blood Pressure / Mean: 04/07/20 16:55: Lactic Acid Level 1.20 Laboratory Tests 04/07/20 16:55: Creatinine 1.36H, Platelet Count 273, Total Bilirubin 0.8 Results/Orders Lab Results Laboratory Tests Test 04/07/20 16:55 Range/Units White Blood Count 14.8 H 4.3-11.0 10^3/uL Red Blood Count 3.45 L 4.35-5.85 10^6/uL Hemoglobin 10.5 L 11.5-16.0 G/DL Hematocrit 30 L 35-52 % Mean Corpuscular Volume 89 80-99 FL Mean Corpuscular Hemoglobin 30 25-34 PG Mean Corpuscular Hemoglobin Concent 34 32-36 G/DL Red Cell Distribution Width 13.0 10.0-14.5 % Platelet Count 273 130-400 10^3/uL Mean Platelet Volume 9.2 7.4-10.4 FL Immature Granulocyte % (Auto) 1 % Neutrophils (%) (Auto) 86 H 42-75 % Lymphocytes (%) (Auto) 7 L 12-44 % Monocytes (%) (Auto) 7 0-12 % Eosinophils (%) (Auto) 0 0-10 % Basophils (%) (Auto) 0 0-10 % Neutrophils # (Auto) 12.7 H 1.8-7.8 X 10^3 Lymphocytes # (Auto) 1.0 1.0-4.0 X 10^3 Monocytes # (Auto) 1.0 0.0-1.0 X 10^3 Eosinophils # (Auto) 0.0 0.0-0.3 10^3/uL Basophils # (Auto) 0.0 0.0-0.1 10^3/uL Immature Granulocyte # (Auto) 0.1 0.0-0.1 10^3/uL Neutrophils % (Manual) 92 % Lymphocytes % (Manual) 3 % Monocytes % (Manual) 2 % Eosinophils % (Manual) 0 % Basophils % (Manual) 0 % Band Neutrophils 3 % Sodium Level 133 L 135-145 MMOL/L Potassium Level 3.7 3.6-5.0 MMOL/L Chloride Level 98 98-107 MMOL/L Carbon Dioxide Level 22 21-32 MMOL/L Anion Gap 13 5-14 MMOL/L Blood Urea Nitrogen 22 H 7-18 MG/DL Creatinine 1.36 H 0.60-1.30 MG/DL Estimat Glomerular Filtration Rate 41 BUN/Creatinine Ratio 16 Glucose Level 189 H 70-105 MG/DL Lactic Acid Level 1.20 0.50-2.00 MMOL/L Calcium Level 9.1 8.5-10.1 MG/DL Corrected Calcium 9.4 8.5-10.1 MG/DL Total Bilirubin 0.8 0.1-1.0 MG/DL Aspartate Amino Transf (AST/SGOT) 10 5-34 U/L Alanine Aminotransferase (ALT/SGPT) 9 0-55 U/L Alkaline Phosphatase 86 40-136 U/L Total Protein 7.1 6.4-8.2 GM/DL Albumin 3.6 3.2-4.5 GM/DL My Orders Orders - SURENDRA SALGADO MD Lactic Acid Analyzer (04/07/20 16:41) Urinalysis (04/07/20 16:41) Cbc With Automated Diff (04/07/20 16:41) Comprehensive Metabolic Panel (04/07/20 16:41) Blood Culture (04/07/20 16:41) Ed Iv/Invasive Line Start (04/07/20 16:41) Ns Iv 500 Ml (Sodium Chloride 0.9%) (04/07/20 16:41) Manual Differential (04/07/20 16:55) Blood Culture (04/07/20 17:17) Vital Signs/I&O Capillary Refill : Progress Note : Time: 17:32 Progress Note Negative for acute sepsis. However patient most likely than not covered on urine with Cipro. We will repeat Rocephin 1 g and change patient's antibiotics doxycycline twice daily. Patient is instructed to follow up with PCP in 2-3 days. Encourage by mouth fluids take medications as instructed. Tylenol Motrin as needed for fever pain get plenty of rest and follow-up with PCP in 2-3 days. Departure Impression Primary Impression: Urinary tract infection Additional Impression: examination or test, negative result Disposition: 01 HOME, SELF-CARE Condition: Stable Departure-Patient Inst. Decision time for Depature: 17:32 Referrals: [facility]/ (PCP) Primary Care Physician NEO WOODALL APRN (Family) Primary Care Physician Patient Instructions: Urinary Tract Infection, Adult (DC) Add. Discharge Instructions: Encourage by mouth fluids take medications as instructed. Tylenol Motrin as needed for fever pain get plenty of rest and follow-up with PCP in 2-3 days. Scripts Doxycycline Hyclate (Doxycycline Hyclate) 100 Mg Tablet 100 MG PO BID, #20 TAB 0 Refills Prov: SURENDRA SALGADO MD 04/07/20 SURENDRA SALGADO MD Apr 07, 2020 16:44
[2020-04-07 17:10] LABS: WHITE BLOOD COUNT 14.8 10^3/uL (4.3-11.0)
[2020-04-07 17:11] LABS: HEMATOCRIT 30 % (35-52); HEMOGLOBIN 10.5 G/DL (11.5-16.0); MEAN CORPUSCULAR HEMOGLOBIN 30 PG (25-34); MEAN CORPUSCULAR HGB CONC 34 G/DL (32-36); MEAN CORPUSCULAR VOLUME 89 FL (80-99)
[2020-04-07 17:12] LABS: BASOPHILS % (AUTO) 0 % (0-10); EOSINOPHILS % (AUTO) 0 % (0-10); LYMPHOCYTES % (AUTO) 7 % (12-44); MEAN PLATELET VOLUME 9.2 FL (7.4-10.4); MONOCYTES % (AUTO) 7 % (0-12); NEUTROPHILS % (AUTO) 86 % (42-75); PLATELET COUNT 273 10^3/uL (130-400)
[2020-04-07 17:13] LABS: NEUTROPHILS # (AUTO) 12.7 X 10^3 (1.8-7.8)
[2020-04-07 17:26] LABS: POTASSIUM 3.7 MMOL/L (3.6-5.0)
[2020-04-07 17:27] LABS: ALBUMIN 3.6 GM/DL (3.2-4.5); BAND NEUTROPHILS 3 %; BASOPHILS % (MANUAL) 0 %; BILIRUBIN,TOTAL 0.8 MG/DL (0.1-1.0); CALCIUM 9.1 MG/DL (8.5-10.1); CREATININE SERUM 1.36 MG/DL (0.60-1.30); EOSINOPHILS % (MANUAL) 0 %; LYMPHOCYTES % (MANUAL) 3 %; MONOCYTES % (MANUAL) 2 %; NEUTROPHILS % (MANUAL) 92 %; TOTAL PROTEIN 7.1 GM/DL (6.4-8.2)
[2020-04-07] MEDS ORDERED: DOXY100T2 PO (17:33)
[2020-04-07] MEDS ORDERED: cefTRIAXone FOR IV USE 1,000 MG in WATER (STERILE) FOR INJECTION 10 ML IV ONE (17:45)
[2020-04-07 18:07] VITALS: BP 152/48
== END 2020-04-07 18:07 | disposition home or self-care (01) ==
LOC: EDUNIT# 16:32 → ER FS 16:35
DX: N39.0 Urinary tract infection, site not specified (principal); E11.9 Type 2 diabetes mellitus without complications; E78.00 Pure hypercholesterolemia, unspecified; E03.9 Hypothyroidism, unspecified; Z32.02 Encounter for pregnancy test, result negative; Z82.49 Family history of ischemic heart disease and other diseases of the circulatory system; Z83.3 Family history of diabetes mellitus; Z79.4 Long term (current) use of insulin; Z79.890 Hormone replacement therapy
CPT/HCPCS: 36415; 80053; 83605; 85007; 85027; 87040

== ENCOUNTER → 2020-11-03 | Outpatient (CLI) | payer BC ==
[~2020-11-03] MED LIST changes: +DOXY100T2 PO
--- NOTE | 2020-11-03 09:44 | Diagnostic Imaging Report ---
PROCEDURE: US Renal Bilateral. INDICATION: Chronic renal disease TECHNIQUE: Multiple real-time grayscale sonographic images were obtained of the kidneys. CORRELATION: None FINDINGS: RIGHT KIDNEY: 11.5 x 6.6 x 6.6 cm. There is normal echotexture of the right renal parenchyma. No definitive calcification or hydronephrosis. LEFT KIDNEY: 11.7 x 5.1 x 5.3 cm. There is normal echotexture of the left renal parenchyma. No definitive calcification or hydronephrosis. URINARY BLADDER: The partially distended bladder has an unremarkable appearance. The bilateral ureteral jets are not visualized. IMPRESSION: 1. Unremarkable renal sonogram. Dictated by: Dictated on workstation # [id number]
== END ==
LOC: RAD 09:00
PROVIDERS: ATTEND Internal Medicine Nephrology
DX: I12.9 Hypertensive chronic kidney disease with stage 1 through stage 4 chronic kidney disease, or unspecified chronic kidney disease (principal); N18.31 Chronic kidney disease, stage 3a
CPT/HCPCS: 76770